=== PATIENT | female | born 1950 | race Hispanic/Latino ===

== ENCOUNTER 2018-03-18 20:11 | Emergency (ER) | payer MEDICARE ==
[2018-03-18] MEDS ORDERED: SUBLIMAZE IM ONE (20:36)
[2018-03-18] MEDS ORDERED: ZOFRAN IM ONE (20:36)
--- NOTE | 2018-03-18 20:41 | Emergency Department Report ---
HPI - General Chief Complaint: Extremity Injury, Upper Time Seen by Provider: 03/18/18 20:28 - HPI HPI: Room 3 The patient is a 67-year-old female presenting with a chief complaint of left shoulder pain and bilateral knee pain after fall. Patient states just prior to arrival she tripped and fell into the door frame striking her left shoulder and bilateral knees. Patient complains of pain in both knees with the right being greater than the left. Patient complains of significant left shoulder pain that worsens with movement. The patient is her pain a score of 10/10 Location: [See above] Duration: [See above] Quality: [See above] Severity: 12/06 Modifying factors: [see above] Context: [see above] Mode of transportation: [not driving] ED Past Medical Hx - Past Medical History Hx Hypertension: Yes Hx Congestive Heart Failure: Yes Hx Diabetes: Yes Hx Deep Vein Thrombosis: Yes (right leg) Hx GERD: Yes Hx Arthritis: Yes Hx Asthma: Yes Additional medical history: high chol, venous insufficiency - Surgical History Hx Appendectomy: Yes Additional Surgical History: Hysterectomy, T&A, Bilat knee surg, finger surg, Basal cell CA removed from neck - Family History Family history: no significant - Social History Smoking Status: Never Smoker Substance Use Type: None - Medications Home Medications: Home Medications Medication Instructions Recorded Confirmed Last Taken Type Clindamycin [Clindamycin CAP] 300 mg PO Q6H #28 capsule 04/04/13 04/12/13 04/12/13 10:30 Rx Liraglutide [Victoza 2-Shiva] 0.6 mg IM BID 04/04/13 04/12/13 04/11/13 22:30 History 0.6 mg/0.1 ml buPROPion [Wellbutrin] 100 mg PO HS 04/04/13 04/12/13 04/12/13 History 100 mg Ipratropium/Albuterol Sulfate 2 inh INHALATION PRN PRN 04/12/13 04/12/13 04/01/13 10:30 History [Combivent Respimat] Loperamide HCl [Loperamide] 2 mg PO PRN PRN 04/12/13 04/12/13 Unknown History Bimatoprost [Lumigan 0.01%] 1 drop OU QDAY #1 drops 04/15/13 Unknown Rx Carvedilol [Coreg] 12.5 mg PO BID #60 tablet 04/15/13 Unknown Rx Ergocalciferol [Vitamin D2] 1.25 mg PO 1XW #7 capsule 04/15/13 Unknown Rx Fenofibrate [Lofibra] 160 mg PO DAILY #30 tablet 04/15/13 Unknown Rx Furosemide [Lasix] 20 mg PO DAILY #30 tablet 04/15/13 Unknown Rx HYDROcodone/APAP 7.5-325 [[place] 1 tab PO Q6HR #60 tablet 04/15/13 Unknown Rx 7.5-325 mg TAB] Montelukast [Singulair] 10 mg PO QPM #30 tablet 04/15/13 Unknown Rx Omeprazole [PriLOSEC] 20 mg PO HS #30 capsule.dr 04/15/13 Unknown Rx Oxybutynin Chloride [Ditropan Xl] 10 mg PO DAILY #30 tab.er.24 04/15/13 Unknown Rx PARoxetine [Paxil] 3 tab PO QDAY #30 tablet 04/15/13 Unknown Rx Pravastatin [Pravachol] 40 mg PO QDAY #30 tablet 04/15/13 Unknown Rx Spironolactone 25 mg PO BID #60 tablet 04/15/13 Unknown Rx Sulfamethoxazole/Trimethoprim 1 each PO BID #14 tablet 04/15/13 Unknown Rx [Bactrim Ds] buPROPion SR [Wellbutrin SR] 150 mg PO QDAY #30 tablet 04/15/13 Unknown Rx glipiZIDE [Glucotrol] 10 mg PO BID #60 tablet 04/15/13 Unknown Rx metFORMIN [Glucophage] 1,000 mg PO QDAY #30 tablet 04/15/13 Unknown Rx traZODone [Desyrel] 150 mg PO HS #30 tablet 04/15/13 Unknown Rx Cyclobenzaprine [Flexeril] 10 mg PO TID PRN #14 tablet 03/18/18 Unknown Rx oxyCODONE /ACETAMINOPHEN [Percocet 1 - 2 tab PO Q6HR PRN #30 tablet 03/18/18 Unknown Rx 5/325] ED Review of Systems ROS: Stated complaint: ARM PAIN Other details as noted in HPI Constitutional: no symptoms reported Eyes: denies: eye pain ENT: denies: throat pain Respiratory: no symptoms reported Cardiovascular: denies: chest pain Endocrine: no symptoms reported Gastrointestinal: denies: abdominal pain Genitourinary: denies: dysuria Musculoskeletal: arthralgia, myalgia Neurological: denies: headache Physical Exam - Physical Exam Vital Signs: Vital Signs 03/18/18 20:13 Temperature 98.7 F Pulse Rate 74 Respiratory 16 Rate Blood Pressure 149/64 [Left] O2 Sat by Pulse 96 Oximetry Physical Exam: GENERAL: The patient is well-developed well-nourished female lying on stretcher. Be in moderate discomfort. [] HEENT: Normocephalic. Atraumatic. Extraocular motions are intact. Patient has moist mucous membranes. NECK: Supple. Trachea midline CHEST/LUNGS: Clear to auscultation. There is no respiratory distress noted. HEART/CARDIOVASCULAR: Regular. There is no tachycardia. There is no gallop rub or murmur. 2+ left radial pulse ABDOMEN: Abdomen is soft, nontender. Patient has normal bowel sounds. There is no abdominal distention. SKIN: There is no rash. There is no edema. There is no diaphoresis. NEURO: The patient is awake, alert, and oriented. The patient is cooperative. The patient has normal speech. Patient able to wiggle fingers of left hand and has sensation to light touch states that her fingers are tingling. MUSCULOSKELETAL: There is tenderness to palpation of the left forearm elbow and left shoulder. There is tenderness to palpation of bilateral knees no deformity seen of the knees. ED Course Vital Signs 03/18/18 20:13 Temperature 98.7 F Pulse Rate 74 Respiratory 16 Rate Blood Pressure 149/64 [Left] O2 Sat by Pulse 96 Oximetry ED Medical Decision Making - Radiology Data Radiology results: image reviewed (left shoulder x-ray, left humerus x-ray, b ilateral knee x-ray, left forearm x-ray) interpreted by me: Left shoulder x-ray-no dislocation. Fracture of the humeral shaft Left humerus [id number] fracture of the humeral shaft Bilateral knee x-ray-no acute fracture seen Left forearm x-ray-no fracture - Differential Diagnosis shoulder dislocation, shoulder fx, Critical care attestation.: If time is entered above; I have spent that time in minutes in the direct care of this critically ill patient, excluding procedure time. ED Disposition Clinical Impression: Fracture of humeral shaft, left, closed, Left arm pain, Contusion of left knee, Contusion of right knee Disposition: - TO HOME OR SELFCARE Is pt being admited?: No Does the pt Need Aspirin: No Condition: Stable Instructions: Arm Fracture in Adults (ED) Additional Instructions: Return to the emergency department immediately should you develop worsening symptoms, fever, inability to tolerate food or liquid or any other concerns. Prescriptions: Cyclobenzaprine [Flexeril] 10 mg PO TID PRN #14 tablet PRN Reason: Muscle Spasm oxyCODONE /ACETAMINOPHEN [Percocet 5/325] 1 - 2 tab PO Q6HR PRN #30 tablet PRN Reason: Pain Referrals: MATTHEW HOLDEN MD [Primary Care Provider] - 3-5 Days LIZA ALEMAN MD [Staff Physician] - 3-5 Days (Dr. Aleman is an orthopedic surgeon. Please follow up with him for further evaluation) Time of Disposition: 22:08
[2018-03-18] MEDS ORDERED: DILAUDID IM ONE (22:04)
--- NOTE | 2018-03-18 22:17 | XRay Report ---
FINAL REPORT PROCEDURE: XR FOREARM 1V LT TECHNIQUE: Left forearm radiographs, single lateral view HISTORY: LT FOREARM PAIN. Injury. COMPARISON: No prior studies are available for comparison. FINDINGS: Fracture (s) and/or Dislocation(s): None . Joint space(s): Normal . Soft tissues: Normal . Bone mineralization: Normal . Foreign bodies: None . IMPRESSION: Normal Examination
--- NOTE | 2018-03-18 22:19 | XRay Report ---
FINAL REPORT PROCEDURE: XR HUMERUS 2+V LT TECHNIQUE: LEFT humerus radiographs, AP and lateral views. HISTORY: pain after fall COMPARISON: No prior studies are available for comparison. FINDINGS: Fracture (s) and/or Dislocation(s): There is oblique fracture of the proximal shaft of the humerus wi th angulation and displacement of less than 1 shaft width. Joint space(s): Normal. Soft tissues: Normal. Bone mineralization: Normal. Foreign bodies: None. IMPRESSION: Humerus shaft fracture.
--- NOTE | 2018-03-18 22:25 | XRay Report ---
FINAL REPORT PROCEDURE: XR SHOULDER 1V LT TECHNIQUE: Left shoulder radiograph, single frontal view. HISTORY: pain after fall COMPARISON: No prior studies are available for comparison. FINDINGS: Fracture(s): Acute oblique fracture of the proximal shaft of the humerus. Healed left rib fracture. Joint space(s): Mild glenohumeral and acromioclavicular degenerative change Soft tissues: Normal. Bone mineralization: Normal. Foreign bodies: None. IMPRESSION: Acute fracture of the proximal shaft of the left humerus.
--- NOTE | 2018-03-18 22:34 | XRay Report ---
FINAL REPORT PROCEDURE: XR KNEE BILAT 3V TECHNIQUE: Bilateral knee radiographs, frontal, lateral, and oblique views. HISTORY: pain after fall - COMPARISON: No prior studies are available for comparison. FINDINGS: Fracture (s) and/or Dislocation(s): None . Joint space(s): Bilateral total knee replacements. Alignment is near anatomic. Soft tissues: Normal. Bone mineralization: Normal. Foreign bodies: None. IMPRESSION: Bilateral knee replacements. No fracture seen.
[2018-03-18 22:54] VITALS: BP 165/57
== END 2018-03-18 22:48 | disposition home or self-care (01) ==
LOC: ED 20:11
DX: S42.302A Unspecified fracture of shaft of humerus, left arm, initial encounter for closed fracture (principal); S80.02XA Contusion of left knee, initial encounter; S80.01XA Contusion of right knee, initial encounter; I11.0 Hypertensive heart disease with heart failure; E11.9 Type 2 diabetes mellitus without complications; Z86.718 Personal history of other venous thrombosis and embolism; K21.9 Gastro-esophageal reflux disease without esophagitis; M19.90 Unspecified osteoarthritis, unspecified site; J45.909 Unspecified asthma, uncomplicated; E78.00 Pure hypercholesterolemia, unspecified; Z90.49 Acquired absence of other specified parts of digestive tract; Z90.710 Acquired absence of both cervix and uterus; W01.198A Fall on same level from slipping, tripping and stumbling with subsequent striking against other object, initial encounter; Y93.89 Activity, other specified; Y92.89 Other specified places as the place of occurrence of the external cause; Y99.8 Other external cause status
CPT/HCPCS: 73020; 73060; 73090; 73562; 96372; 99283; J1170; J2405; J3010

== ENCOUNTER 2018-03-21 15:41 | Inpatient (IN) | payer MEDICARE ==
[~2018-03-21 15:41] MED LIST: ANCEF/STERILE WATER 2 GM/20 ML 2 GM/20 ML SYRINGE IV NR
[2018-03-21 17:22] LABS: Hematocrit 38.4 % (30.3-42.9); Hemoglobin 12.6 gm/dl (10.1-14.3); Mean Corpuscular HGB Conc 33 % (30-34); Mean Corpuscular Volume 94 fl (79-97); Platelet Count 208 K/mm3 (140-440); Red Cell Distribution Width 14.2 % (13.2-15.2)
[2018-03-21 17:50] LABS: BUN/Creatinine Ratio 38; Blood Urea Nitrogen 19 mg/dL (7-17); Calcium 9.3 mg/dL (8.4-10.2); Hemolysis Index 13
--- NOTE | 2018-03-21 17:54 | Anesthesia Consultation ---
Addendum entered and electronically signed by ONELIA ALBERT MD 03/22/18 16:07: Patient seen by cardiology this morning and determined to be stable without cardiac contraindication to surgery. Normal EF, no significant valvular lesions on TTE. Original Note: Anesthesia Consult and Med Hx Date of service: 03/21/18 - Airway Anesthetic Teeth Evaluation: Poor ROM Head & Neck: Adequate Mental/Hyoid Distance: Adequate Mallampati Class: Class II Intubation Access Assessment: Possibly Difficult - Pulmonary Exam CTA: Yes - Cardiac Exam Cardiac Exam: RRR - Pre-Operative Health Status ASA Pre-Surgery Classification: ASA3 Proposed Anesthetic Plan: General - Pulmonary Hx Smoking: No Hx Asthma: Yes (rare inhaler use, presently breathing at her baseline.) SOB: No COPD: Yes Hx Pneumonia: Yes Hx Sleep Apnea: Yes (not on cpap) - Cardiovascular System Hx Hypertension: Yes (H/O CHF) Hx Coronary Artery Disease: No Hx Heart Attack/AMI: No Hx Angina: No Hx Cardia Arrhythmia: No Hx Peripheral Vascular Disease: Yes (veinous insufficiency) - Central Nervous System Hx Seizures: No CVA: Yes (2000) Hx Back Pain: Yes Hx Psychiatric Problems: Yes - Endocrine Hx Renal Disease: Yes Hx End Stage Renal Disease: No - Hematic Hx Anemia: No Hx Sickle Cell Disease: No - Other Systems Hx Alcohol Use: No Hx Substance Use: No Hx Cancer: Yes Hx Obesity: Yes (morbid) - Additional Comments Anesthesia Medical History Comments: Cardiology clearance pending
[2018-03-22] MEDS ORDERED: D50W (25GM) Syringe IV PRN (02:39)
[2018-03-22] MEDS ORDERED: APRESOLINE IV PRN (02:41)
--- NOTE | 2018-03-22 02:51 | Consultation ---
History of Present Illness - Reason for Consult Consult date: 03/22/18 PREOPERATIVE MEDICAL CLEARANCE Requesting physician: LIZA PATTON - History of Present Illness Patient is a 67 year old female who fell down accidentally with pain and difficulty moving her left upper extremity. there is no history of chest pain, shortness of breath ,fever or chills. patient also has no history of nausea and vomiting. Past History Past Medical History: diabetes, hypertension, other (1. Asthma 2. Glaucoma 3. Venous Insufficiency) Social history: denies: smoking, alcohol abuse Family history: no significant family history Medications and Allergies Allergies Allergy/AdvReac Type Severity Reaction Status Date / Time meperidine HCl [From Demerol] Allergy Rash Verified 04/04/13 16:22 NSAIDS (Non-Steroidal Allergy Rash Verified 04/04/13 16:22 Anti-Inflamma Penicillins Allergy Rash Verified 04/04/13 16:22 Home Medications Medication Instructions Recorded Confirmed Last Taken Type Liraglutide [Victoza 2-Shiva] 1.8 mg IM QHS 04/04/13 03/22/18 03/20/18 History buPROPion [Wellbutrin] 100 mg PO HS 04/04/13 03/22/18 03/21/18 History Ipratropium/Albuterol Sulfate 2 inh INHALATION PRN PRN 04/12/13 03/22/18 03/07/18 History [Combivent Respimat] Carvedilol [Coreg] 12.5 mg PO BID #60 tablet 04/15/13 03/22/18 03/21/18 Rx Fenofibrate [Lofibra] 160 mg PO DAILY #30 tablet 04/15/13 03/22/18 03/21/18 Rx Furosemide [Lasix] 20 mg PO DAILY #30 tablet 04/15/13 03/22/18 03/19/18 Rx Montelukast [Singulair] 10 mg PO QPM #30 tablet 04/15/13 03/22/18 03/21/18 Rx PARoxetine [Paxil] 3 tab PO QDAY #30 tablet 04/15/13 03/22/18 03/21/18 Rx Pravastatin [Pravachol] 40 mg PO QDAY #30 tablet 04/15/13 03/22/18 03/21/18 Rx Spironolactone 25 mg PO BID #60 tablet 04/15/13 03/22/18 03/21/18 Rx buPROPion SR [Wellbutrin SR] 150 mg PO QDAY #30 tablet 04/15/13 03/22/18 9 Rx glipiZIDE [Glucotrol] 10 mg PO BID #60 tablet 04/15/13 03/22/18 03/21/18 Rx Cyclobenzaprine [Flexeril] 10 mg PO TID PRN #14 tablet 03/18/18 03/22/18 03/21/18 Rx oxyCODONE /ACETAMINOPHEN [Percocet 1 - 2 tab PO Q6HR PRN #30 tablet 03/18/18 03/22/18 03/21/18 Rx 5/325] 20 mg Bimatoprost [Lumigan 0.01%] 1 drop OU QHS 03/22/18 03/22/18 03/21/18 History HYDROcodone/ACETAMINOPHEN 1 each PO Q8H PRN 03/22/18 03/22/18 03/18/18 History [Hydrocodone-Acetamin 10-325 mg] Omeprazole [PriLOSEC] 40 mg PO HS 03/22/18 03/22/18 03/21/18 History Oxybutynin Chloride [Ditropan Xl] 10 mg PO QHS 03/22/18 03/22/18 03/21/18 History Tramadol HCl [Ultram] 75 mg PO PRN 03/22/18 12/28/17 History metFORMIN [Glucophage] 500 mg PO BID 03/22/18 03/22/18 03/21/18 History traZODone [Desyrel] 75 mg PO HS 03/22/18 03/22/18 03/19/18 History Active Meds: Active Medications Dextrose (D50w (25gm) Syringe) 50 ml IV PRN PRN PRN Reason: Hypoglycemia Hydralazine HCl (Apresoline) 10 mg IV Q4H PRN PRN Reason: Blood Pressure Insulin Human Regular (Humulin R) 0 units SUB-Q Q4H APARNA; Protocol Review of Systems Constitutional: no weight loss, no fever, no chills, no sweats, no anorexia, no fatigue, no weakness, no malaise, no lethargy, no poor appetite, no chronic pain Eyes: bilateral: other (No Bilateral visual Impairment) Ears, nose, mouth and throat: no ear pain, no ear discharge, no decreased hearing, no nasal congestion, no nasal discharge, no mouth pain, no dysphagia, no hoarseness, no sore throat, no post-nasal drip, no headache, no vertigo Breasts: deferred Cardiovascular: no chest pain, no orthopnea, no palpitations, no rapid/irregular heart beat, no syncope, no lightheadedness, no shortness of breath, no dyspnea on exertion, no paroxysmal nocturnal dyspnea, no claudication, no phlebitis, no high blood pressure Respiratory: no cough, no hemoptysis, no shortness of breath, no dyspnea on exertion, no congestion, no wheezing, no pleurisy, no pain on inspiration, no respiratory infections Gastrointestinal: no abdominal pain, no nausea, no vomiting, no diarrhea, no constipation, no hematemesis, no melena, no hematochezia, no loss of appetite, no early satiety, no heartburn, no indigestion, no excessive gas, no jaundice, no dyspepsia/bloating, no early satiety, no lactose intolerance Genitourinary Female: stress incontinence, no urinary frequency, no urgency, no hematuria, no Menstruation: postmenopausal Rectal: no pain, no itching, no flatulence Musculoskeletal: no neck stiffness, no neck pain, no shooting arm pain, no morning stiffness, no muscle weakness, no muscle cramps, no myalgias, no atrophy, no limitation of motion, no loss of height, no prior amputations Integumentary: no rash, no pruritis, no redness, no jaundice, no bullae, no lesions, no darkening of skin, no depigmentation Neurological: no weakness, no numbness, no seizures, no syncope, no ataxia, no headaches, no migraines, no convulsions, no aphasia, no change in speech, no change in mentation, no confusion, no memory loss, no double vision, no loss of vision, no hearing difficulties Psychiatric: no anxiety, no insomnia, no suicidal ideation, no depression, no confusion Endocrine: no cold intolerance, no heat intolerance, no excessive thirst, no polydipsia, no polyuria, no nocturia, no excessive sweating, no palpatations, no low blood sugars Allergic/Immunologic: no urticaria, no wheezing, no anaphylaxis, no angioedema, no seasonal allergies Exam - Constitutional Vitals: Temp Pulse Resp BP Pulse Ox 98.0 F 80 20 138/70 92 03/21/18 23:35 03/21/18 23:35 03/21/18 23:35 03/21/18 23:35 03/21/18 23:35 General appearance: Present: no acute distress - EENT Eyes: Present: PERRL, EOM intact. Absent: scleral icterus - Neck Neck: Present: supple. Absent: carotid bruits - Respiratory Respiratory effort: normal - Cardiovascular Rhythm: regular Heart Sounds: Absent: gallop, systolic murmur, diastolic murmur, rub, click - Extremities Extremities: pulses intact Peripheral Pulses: within normal limits - Abdominal General gastrointestinal: Present: soft, non-tender, non-distended. Absent: tender, distended, rigid, hepatomegaly, splenomegaly, mass Female genitourinary: Present: deferred - Rectal Rectal Exam: deferred - Integumentary Integumentary: Present: clear. Absent: jaundice, clammy - Musculoskeletal Musculoskeletal: strength equal bilaterally - Psychiatric Psychiatric: appropriate mood/affect - Neurologic Neurologic: no focal deficits, moves all extremities Results - Labs CBC & Chem 7: 03/21/18 16:57 03/21/18 16:57 Labs: Abnormal lab results 03/21/18 Range/Units 16:57 BUN 19 H (7-17) mg/dL Creatinine 0.5 L (0.7-1.2) mg/dL Glucose 225 H (65-100) mg/dL Assessment and Plan - Patient Problems (1) Fracture of humeral shaft, left, closed Current Visit: No Status: Acute Plan to address problem: 1. Patient will have CBC, CMP and 1 set of cardiac enzymes checked this morning. 2. Patient will have accu checks [id number] with moderate dose Regular Insulin coverage subcutaneously. 3. patient will be on I.V hydralazine 10mg Q4h for blood pressure of 160/90 or more. 4. Tylenol 650mg MT Q4h PRN fever or headache. 5. I.V Zofrav 4mg Q6h PRN nausea and vomitng 6. Pain control and definitive fracture managment per orthopedic surgeon.
[2018-03-22] MEDS: HumuLIN R SUB-Q SCH ×5 (03:00→19:20)
[2018-03-22] MEDS ORDERED: MORPHINE IV PRN (06:04)
--- NOTE | 2018-03-22 09:14 | XRay Report ---
AP CHEST: HISTORY: Preoperative evaluation Borderline to mild cardiomegaly is suspected. Borderline central venous congestion. The lungs are clear. No evidence for pneumonia, large pleural effusion or pneumothorax. IMPRESSION: Borderline heart size and pulmonary vessels. No acute cardiopulmonary process identified.
[2018-03-22] MEDS: MORPHINE IV PRN (11:15)
--- NOTE | 2018-03-22 12:53 | Event Note ---
Date: 03/22/18 Detailed cardiology consultation dictated. Echo reviewed - normal LVEF, no significant abnormalities. Currently stable cardiac status. No cardiac c ontraindications to proceeding with contemplated orthopedic surgery at this time. Saeid MAST NP / DR. Juany BONE
--- NOTE | 2018-03-22 13:05 | Consultation ---
REFERRING PHYSICIAN: Dr. Aleman. PRIMARY CERTIFIED SUBSTANCE ABUSE COUNSELOR: Dr. Saeid Castillo. REASON FOR CONSULTATION: Advice and opinion regarding perioperative cardiac risk. HISTORY OF PRESENT ILLNESS: The patient is a pleasant 67-year-old female with a history of hypertension, diabetes, diastolic heart failure, who presents to the hospital after a nonsyncopal fall. She was found to have a left humeral fracture and scheduled to undergo surgery. She denies any chest pain or shortness of breath. Prior to this, she states the fall was a slip and a nonsyncopal episode. No palpitations, shortness of breath or chest pain ____. No fevers, chills, nausea or vomiting. No similar falls. Diabetes has been under decent control. No hematochezia, melena, hemoptysis or hematemesis. Today, she is seen on telemetry, feeling fine rate, undergo surgery. PAST MEDICAL HISTORY: As aforementioned. REVIEW OF SYSTEMS: As aforementioned. MEDICATIONS: Inpatient and outpatient medications reviewed. ALLERGIES: MEPERIDINE, NSAIDS, AND PENICILLIN. SOCIAL HISTORY: Nonsmoker, nondrinker. FAMILY HISTORY: No significant family history of premature heart disease. OTHER MEDICAL HISTORY: Includes venous insufficiency, glaucoma and asthma. PHYSICAL EXAMINATION: VITAL SIGNS: Blood pressure is 130/70. She is afebrile. Tele reveals sinus rhythm. Her EKG is unremarkable, normal sinus rhythm, normal axis. O2 sat is 96% on room air. HEENT: Sclerae icteric. PERRLA. NECK: Supple, no masses, no JVD. CHEST: Clear to auscultation bilaterally. Good air movement. CARDIOVASCULAR: Regular rhythm, S1, S2. ABDOMEN: Soft, nontender, and nondistended. Normoactive bowel sounds in all 4 quadrants. No masses or bruits. EXTREMITIES: No cyanosis, clubbing, or edema. Good peripheral pulses. SKIN: Warm, dry, intact. No rashes. DATA: EKG is aforementioned. CBC is normal. BMP is unremarkable aside from a glucose of 225. I reviewed her office records, no recent cardiac workup since 2014, saw Dr. aCstillo in September. Given that her EKG is unremarkable, she is asymptomatic. We will check an echocardiogram. If this is unremarkable, I believe she is low risk from a cardiac standpoint for contemplated procedure. Thank you for this consultation. We will follow along with you. JOB# [id number] SBM/NTS
[2018-03-22] MEDS ORDERED: DILAUDID ONE ×2 (15:42→19:04)
[2018-03-22] MEDS ORDERED: DIPRIVAN 10 MG/ML IV ONE ×2 (15:42→15:50)
[2018-03-22] MEDS ORDERED: XYLOCAINE MPF 2% ONE (15:42)
[2018-03-22] MEDS: NACL 0.9% 1000 ML 1,000 ML IV SCH (15:44)
[2018-03-22] MEDS ORDERED: ZEMURON IV ONE (15:48)
[2018-03-22] MEDS ORDERED: QUELICIN ONE (15:48)
[2018-03-22] MEDS ORDERED: VANCOMYCIN/NS 1 GM/250 ML 1 GM/250 ML BAG IV NR (16:03)
--- NOTE | 2018-03-22 16:08 | Anesthesia Day of Surgery ---
Anesthesia Day of Surgery - Day of Surgery Patient Examined: Yes Patient H&P Reviewed: Yes Patient is NPO: Yes Cardiac Clearance: Yes
--- NOTE | 2018-03-22 16:20 | Event Note ---
Date: 03/22/18 Patient seen and examined, Clinically stable, awaiting surgical intervention. Continue supportive care and pain control
[2018-03-22] MEDS ORDERED: VANCOMYCIN 1,750 MG in NACL 0.9% 500 ML 500 ML IV SCH (17:15)
[2018-03-22] MEDS ORDERED: NACL 0.9% IR ONE (17:16)
[2018-03-22] MEDS ORDERED: HYDROGEN PEROXIDE ONE (18:00)
[2018-03-22] MEDS ORDERED: SUBLIMAZE ONE (18:01)
[2018-03-22] MEDS ORDERED: ROBINUL ONE (18:37)
[2018-03-22] MEDS ORDERED: BLOXIVERZ ONE (18:37)
[2018-03-22] MEDS ORDERED: ZOFRAN ONE (18:37)
--- NOTE | 2018-03-22 18:37 | Procedure Note ---
Date of procedure: 03/22/18 Pre-op diagnosis: displaced left proximal third humerus fracture Post-op diagnosis: same Procedure: Closed reduction and insertion of intramedullary nail left humerus Procedure The patient was brought to the OR after being given a scalene nerve block for p ostop pain management she was placed on the OR table in the supine position following induction and intubation the patient's was placed in a beachchair position. The left upper extremity was then prepped and draped in the usual sterile manner. A timeout procedure was done to identify the patient and the correct operative site. An incision was made over the distal acromion this was carried down to skin and subcutaneous the deltoid muscle and fascia was incised as well as the rotator cuff tendon next C-arm was brought in the location of our entry portal was ascertained next a awl was used to enter the proximal medullary canal. A ball-tipped guidewire was then inserted antegrade down the proximal humerus to the fracture site using gentle manipulation and traction the distal medullary canal was entered next the of the IM conchita was chosen she was reamed to a 10 mm diameter followed by insertion of the 9 x 210 IM nail. 2 proximal locking screws were placed into the humeral head and neck area this was followed by placement of the distal locking screw again under C-arm visualization AP and lateral views were obtained showing good reduction of the fracture and placement of our hardware next the wound was copiously irrigated and was closed in a standard routine fashion. Dressings were applied the patient tolerated procedure there were no complications Anesthesia: MAC Surgeon: LIZA PATTON Classics Professor: ALBER ARRINGTON Estimated blood loss: 50-100ml Pathology: none Condition: stable Disposition: PACU
[2018-03-22] MEDS ORDERED: SODIUM CHLORIDE FLUSH SYRINGE 10 ML IV SCH (19:00)
[2018-03-22] MEDS: DILAUDID IV PRN ×2 (19:25→19:40)
--- NOTE | 2018-03-22 19:32 | Post Anesthesia Evaluation ---
- Post Anesthesia Evaluation Patient Participated: Yes Airway Patent: Yes Stable Respiratory Function: Yes Temp > 96.8F: Yes Pain Manageable: Yes Adequeate Hydration: Yes Anesthesia Complications: No
[2018-03-22 22:07] LABS: Bacteria,Urine 2+ /HPF (Negative); Bilirubin,Urine NEG (Negative); Blood,Urine MOD (Negative); Color,Urine Amber (Yellow); Mucus,Urine 1+ /HPF
[2018-03-22 22:12] LABS: WBC,Urine > 182.0 /HPF (0.0-6.0)
[2018-03-23] MEDS: NACL 0.9% 1000 ML 1,000 ML IV SCH
[2018-03-23] MEDS: HumuLIN R SUB-Q SCH ×9 (00:37→23:12)
[2018-03-23] MEDS: MORPHINE IV PRN ×2 (04:09→10:56)
--- NOTE | 2018-03-23 07:32 | XRay Report ---
LEFT SHOULDER, 2 VIEWS LEFT HUMERUS, 2 VIEWS HISTORY: Pain, left humerus fracture, scalp and intraoperative films. FINDINGS: Fluoroscopy was provided by radiology during internal fixation of a mildly displaced and angulated fracture in the proximal left humeral shaft. Post operative images demonstrate anatomic alignment after placement of an intramedullary conchita. Mild arthritic changes are noted at the left shoulder. IMPRESSION: Internal fixation of a left humeral fracture. Please correlate with the procedural report as needed.
[2018-03-23] MEDS ORDERED: ZOFRAN ODT PO PRN (09:00)
[2018-03-23] MEDS: NORCO 5/325 PO PRN (10:20)
[2018-03-23] MEDS: LOVENOX SUB-Q SCH (10:20)
--- NOTE | 2018-03-23 11:00 | Progress Note ---
Assessment and Plan S/p closed reduction and insertion of nail of left humerus yesterday. Currently stable cardiac status. Cont home cardiac regimen. Nothing further to add from cardiac perspective. Will sign off. Recommend pt follow up in our office with Dr. Castillo within 1-2 weeks of hospital discharge ([phone]). The patient has been seen in conjunction with Dr. Juany Garrido who agrees with the assessment and plan of care. - Patient Problems (1) Left humeral fracture Current Visit: Yes Status: Acute (2) HTN (hypertension) Current Visit: Yes Status: Chronic (3) Diabetes Current Visit: Yes Status: Chronic (4) Dyslipidemia Current Visit: Yes Status: Chronic (5) Morbid obesity Current Visit: Yes Status: Chronic (6) Sleep apnea Current Visit: Yes Status: Chronic Subjective Date of service: 03/23/18 Principal diagnosis: humerus fracture Interval history: pt resting in bed, s/p closed reduction and insertion of nail of left humerus yesterday, c/o significant pain in left arm, requesting more adequate pain control. no current cardiac complaints. Objective Last Vital Signs Temp 98.8 F 03/23/18 08:41 Pulse 92 H 03/23/18 08:41 Resp 18 03/23/18 08:41 BP 134/54 03/23/18 08:41 Pulse Ox 95 03/23/18 08:41 - Physical Examination General: No Apparent Distress, Other (c/o left arm pain) HEENT: Positive: PERRL, Normocephaly, Mucus Membranes Moist Neck: Positive: neck supple, trachea midline Cardiac: Positive: Reg Rate and Rhythm, S1/S2 Lungs: Positive: clear to auscultation Neuro: Positive: Grossly Intact Abdomen: Positive: Soft. Negative: Tender Skin: Negative: Rash Extremities: Absent: edema - Imaging and Cardiology EKG: report reviewed, image reviewed Echo: report reviewed (03/22/2018: EF 50-55%, abnormal diastolic function. )
[2018-03-23] MEDS ORDERED: IPRATROPIUM INHALATION PRN (11:59)
[2018-03-23] MEDS ORDERED: ALBUTEROL SULFATE INHALATION PRN (11:59)
[2018-03-23] MEDS ORDERED: PROVENTIL IH PRN (12:59)
--- NOTE | 2018-03-23 14:14 | Progress Note ---
Assessment and Plan Assessment and plan: Patient is a 67 year old female who fell down accidentally with pain and difficulty moving her left upper extremity. there is no history of chest pain, shortness of breath ,fever or chills. patient also has no history of nausea and vomiting. (1) Left humeral fracture Current Visit: Yes Status: Acute S/p closed reduction and insertion of nail of left humerus yesterday. Pain management Evaluate for Rehab vs SNF Anticipate discharge in AM (2) HTN (hypertension) Current Visit: Yes Status: Chronic (3) Diabetes Current Visit: Yes Status: Chronic (4) Dyslipidemia Current Visit: Yes Status: Chronic (5) Morbid obesity Current Visit: Yes Status: Chronic Weight loss counselling provided (6) Sleep apnea Current Visit: Yes Status: Chronic DVT/GI prophy History Interval history: Patient is seen today for: S/p closed reduction and insertion of nail of left humerus yesterday. Seen and examined at bedside; 24hour events reviewed; nursing staff ; no adverse overnight events reported to me; Denies any chest pain, nausea, vomiting, diarrhea . patient complains of pain at surgical site. 10/10 in intensity and not willing to move the hand. No fever noted blood pressure controlled Hospitalist Physical - Physical exam Narrative exam: VITAL SIGNS: Reviewed. GENERAL: The patient appeared well nourished and normally developed. morbidly obese Vital signs as documented. HEAD: No signs of head trauma. EYES: Pupils are equal. Extraocular motions intact. EARS: Hearing grossly intact. MOUTH: Oropharynx is normal. NECK: No adenopathy, no JVD. CHEST: Chest with clear breath sounds bilaterally. No wheezes, rales, or rhonchi. CARDIAC: Regular rate and rhythm. S1 and S2, without murmurs, gallops, or rubs. VASCULAR: No Edema. Peripheral pulses normal and equal in all extremities. ABDOMEN: Soft, without detectable tenderness. No sign of distention. No rebound or guarding, and no masses palpated. Bowel Sounds normal. MUSCULOSKELETAL: Left upper extremity in a sling would dress and tender to touch patient resistant to movement. Good range of motion of all other major joints. Extremities without clubbing, cyanosis or edema. NEUROLOGIC EXAM: Alert and oriented x 3. No focal sensory or strength deficits. Speech normal. Follows commands. PSYCHIATRIC: Mood normal. SKIN: No rash or lesions. - Constitutional Vitals: Temp Pulse Resp BP Pulse Ox 98.3 F 88 18 152/52 95 03/23/18 11:37 03/23/18 11:37 03/23/18 11:37 03/23/18 11:37 03/23/18 11:37 General appearance: Present: no acute distress Results - Labs CBC & Chem 7: 03/21/18 16:57 03/21/18 16:57 Labs: Laboratory Last Values WBC 8.8 K/mm3 (4.5-11.0) 03/21/18 16:57 RBC 4.10 M/mm3 (3.65-5.03) 03/21/18 16:57 Hgb 12.6 gm/dl (10.1-14.3) 03/21/18 16:57 Hct 38.4 % (30.3-42.9) 03/21/18 16:57 MCV 94 fl (79-97) 03/21/18 16:57 MCH 31 pg (28-32) 03/21/18 16:57 MCHC 33 % (30-34) 03/21/18 16:57 RDW 14.2 % (13.2-15.2) 03/21/18 16:57 Plt Count 208 K/mm3 (140-440) 03/21/18 16:57 Sodium 139 mmol/L (137-145) 03/21/18 16:57 Potassium 4.4 mmol/L (3.6-5.0) 03/21/18 16:57 Chloride 98.3 mmol/L (98-107) 03/21/18 16:57 Carbon Dioxide 30 mmol/L (22-30) 03/21/18 16:57 Anion Gap 15 mmol/L 03/21/18 16:57 BUN 19 mg/dL (7-17) H 03/21/18 16:57 Creatinine 0.5 mg/dL (0.7-1.2) L 03/21/18 16:57 Estimated GFR > 60 ml/min 03/21/18 16:57 BUN/Creatinine Ratio 38 % 03/21/18 16:57 Glucose 225 mg/dL (65-100) H 03/21/18 16:57 POC Glucose 232 (70-105) H 03/23/18 11:40 Calcium 9.3 mg/dL (8.4-10.2) 03/21/18 16:57 Urine Color Claudette (Yellow) 03/22/18 21:41 Urine Turbidity Cloudy (Clear) 03/22/18 21:41 Urine pH 5.0 (5.0-7.0) 03/22/18 21:41 Ur Specific [place] 1.028 (1.003-1.030) 03/22/18 21:41 Urine Protein 30 mg/dl mg/dL (Negative) 03/22/18 21:41 Urine Glucose (UA) Neg mg/dL (Negative) 03/22/18 21:41 Urine Ketones Tr mg/dL (Negative) 03/22/18 21:41 Urine Blood Mod (Negative) 03/22/18 21:41 Urine Nitrite Neg (Negative) 03/22/18 21:41 Urine Bilirubin Neg (Negative) 03/22/18 21:41 Urine Urobilinogen 2.0 mg/dL (<2.0) 03/22/18 21:41 Ur Leukocyte Esterase Lg (Negative) 03/22/18 21:41 Urine WBC (Auto) > 182.0 /HPF (0.0-6.0) H 03/22/18 21:41 Urine RBC (Auto) 73.0 /HPF (0.0-6.0) 03/22/18 21:41 U Epithel Cells (Auto) 5.0 /HPF (0-13.0) 03/22/18 21:41 Urine Bacteria (Auto) 2+ /HPF (Negative) 03/22/18 21:41 Urine WBC Clumps 3+ /HPF 03/22/18 21:41 Urine Mucus 1+ /HPF 03/22/18 21:41
--- NOTE | 2018-03-23 15:48 | Progress Note ---
Assessment and Plan Status post closed reduction and insertion of intramedullary nail left humerus Postoperative day 1 Continued observation begin physical therapy hopefully discharged home soon Subjective Date of service: 03/23/18 Principal diagnosis: humerus fracture Interval history: Still complaining of left shoulder and arm pain Objective Vital signs: Vital Signs - 12hr 03/23/18 03/23/18 03/23/18 04:00 07:36 08:41 Temperature 99.4 F 98.8 F Pulse Rate 90 92 H Respiratory 20 18 Rate Blood Pressure 138/57 Blood Pressure 134/54 [Right] O2 Sat by Pulse 94 93 95 Oximetry 03/23/18 11:37 Temperature 98.3 F Pulse Rate 88 Respiratory 18 Rate Blood Pressure 152/52 Blood Pressure [Right] O2 Sat by Pulse 95 Oximetry Narrative Exam: Left arm - postoperative dressings intact no bloody drainage noted patient is lying in bed encouraged to get up or sit up in chair and to cooperate with physical therapy - Labs CBC & BMP: 03/21/18 16:57 03/21/18 16:57 Labs: Abnormal lab results 03/22/18 03/22/18 03/22/18 Range/Units 19:17 21:41 22:26 POC Glucose 132 H 150 H (70-105) Urine WBC (Auto) > 182.0 H (0.0-6.0) /HPF 03/23/18 03/23/18 03/23/18 Range/Units 04:17 06:11 11:40 POC Glucose 203 H 183 H 232 H (70-105) Urine WBC (Auto) (0.0-6.0) /HPF
[2018-03-23] MEDS: LEVAQUIN PO SCH (17:02)
[2018-03-23] MEDS: GLUCOPHAGE PO SCH (17:51)
[2018-03-23] MEDS: GLUCOTROL PO SCH (17:51)
[2018-03-23] MEDS: SINGULAIR PO SCH (18:16)
[2018-03-23] MEDS: LATANOPROST 0.005% OU SCH (18:16)
[2018-03-23] MEDS ORDERED: NON-FORMULARY (Oxybutynin Chloride [Ditropan Xl] 10 MG) PO SCH (22:00)
[2018-03-23] MEDS ORDERED: NON-FORMULARY (Bimatoprost [Lumigan 0.01%] 1 DROP) OU SCH (22:00)
[2018-03-23] MEDS ORDERED: NON-FORMULARY (Liraglutide [Victoza 2-Pak] 1.8 MG) IM SCH (22:00)
[2018-03-23] MEDS: COREG PO SCH (23:13)
[2018-03-23] MEDS: WELLBUTRIN PO SCH (23:21)
[2018-03-23] MEDS: DITROPAN XL PO SCH (23:21)
[2018-03-23] MEDS: DESYREL PO SCH (23:22)
[2018-03-23] MEDS: ALDACTONE PO SCH (23:22)
[2018-03-24] MEDS: HumuLIN R SUB-Q SCH ×4 (04:40→23:00)
[2018-03-24] MEDS: ULTRAM PO PRN ×3 (05:40→21:25)
[2018-03-24] MEDS: NORCO 10/325 PO PRN ×2 (05:41→15:18)
[2018-03-24] MEDS: LASIX PO SCH (05:42)
[2018-03-24] MEDS: GLUCOPHAGE PO SCH ×2 (09:16→17:37)
[2018-03-24] MEDS: GLUCOTROL PO SCH ×2 (09:16→17:37)
[2018-03-24] MEDS ORDERED: PAXIL PO SCH (10:00)
[2018-03-24] MEDS ORDERED: NON-FORMULARY (Fenofibrate [Lofibra] 160 MG) PO SCH (10:00)
[2018-03-24] MEDS: LEVAQUIN PO SCH (11:04)
[2018-03-24] MEDS: TRICOR PO SCH (11:04)
[2018-03-24] MEDS: COREG PO SCH ×2 (11:04→21:26)
[2018-03-24] MEDS: PRAVACHOL PO SCH (11:05)
[2018-03-24] MEDS: WELLBUTRIN SR PO SCH (11:05)
[2018-03-24] MEDS: ALDACTONE PO SCH ×2 (11:05→21:30)
[2018-03-24] MEDS: LOVENOX SUB-Q SCH (11:06)
[2018-03-24] MEDS: PAXIL PO SCH (11:16)
--- NOTE | 2018-03-24 12:10 | Progress Note ---
Assessment and Plan Assessment and plan: Patient is a 67 year old female who fell down accidentally with pain and difficulty moving her left upper extremity. there is no history of chest pain, shortness of breath ,fever or chills. patient also has no history of nausea and vomiting. (1) Left humeral fracture Current Visit: Yes Status: Acute S/p closed reduction and insertion of nail of left humerus yesterday. Pain management Evaluate for Rehab vs SNF Anticipate discharge in AM Patient does not feel safe with a plan of going home. will keep till case manage ment able to arrange alternative discharge plan (2) HTN (hypertension) Current Visit: Yes Status: Chronic (3) Diabetes Current Visit: Yes Status: Chronic (4) Dyslipidemia Current Visit: Yes Status: Chronic (5) Morbid obesity Current Visit: Yes Status: Chronic Weight loss counselling provided (6) Sleep apnea Current Visit: Yes Status: Chronic DVT/GI prophy History Interval history: Patient is seen today for: S/p closed reduction and insertion of nail of left humerus yesterday. Seen and examined at bedside; 24hour events reviewed; nursing staff ; no adverse overnight events reported to me; Denies any chest pain, nausea, vomiting, diarrhea . patient complains of pain at surgical site. improving and states she does not feel safe going home No fever noted blood pressure controlled Hospitalist Physical - Physical exam Narrative exam: VITAL SIGNS: Reviewed. GENERAL: The patient appeared well nourished and normally developed. morbidly obese Vital signs as documented. HEAD: No signs of head trauma. EYES: Pupils are equal. Extraocular motions intact. EARS: Hearing grossly intact. MOUTH: Oropharynx is normal. NECK: No adenopathy, no JVD. CHEST: Chest with clear breath sounds bilaterally. No wheezes, rales, or rhonchi. CARDIAC: Regular rate and rhythm. S1 and S2, without murmurs, gallops, or rubs. VASCULAR: No Edema. Peripheral pulses normal and equal in all extremities. ABDOMEN: Soft, without detectable tenderness. No sign of distention. No rebound or guarding, and no masses palpated. Bowel Sounds normal. MUSCULOSKELETAL: Left upper extremity in a sling would dress and tender to touch patient resistant to movement. Good range of motion of all other major joints. Extremities without clubbing, cyanosis or edema. NEUROLOGIC EXAM: Alert and oriented x 3. No focal sensory or strength deficits. Speech normal. Follows commands. PSYCHIATRIC: Mood normal. SKIN: No rash or lesions. - Constitutional Vitals: Temp Pulse Resp BP Pulse Ox 98.3 F 72 20 155/38 97 03/24/18 07:20 03/24/18 07:20 03/24/18 07:20 03/24/18 07:20 03/24/18 07:20 General appearance: Present: no acute distress Results - Labs CBC & Chem 7: 03/21/18 16:57 03/21/18 16:57 Labs: Laboratory Last Values WBC 8.8 K/mm3 (4.5-11.0) 03/21/18 16:57 RBC 4.10 M/mm3 (3.65-5.03) 03/21/18 16:57 Hgb 12.6 gm/dl (10.1-14.3) 03/21/18 16:57 Hct 38.4 % (30.3-42.9) 03/21/18 16:57 MCV 94 fl (79-97) 03/21/18 16:57 MCH 31 pg (28-32) 03/21/18 16:57 MCHC 33 % (30-34) 03/21/18 16:57 RDW 14.2 % (13.2-15.2) 03/21/18 16:57 Plt Count 208 K/mm3 (140-440) 03/21/18 16:57 Sodium 139 mmol/L (137-145) 03/21/18 16:57 Potassium 4.4 mmol/L (3.6-5.0) 03/21/18 16:57 Chloride 98.3 mmol/L (98-107) 03/21/18 16:57 Carbon Dioxide 30 mmol/L (22-30) 03/21/18 16:57 Anion Gap 15 mmol/L 03/21/18 16:57 BUN 19 mg/dL (7-17) H 03/21/18 16:57 Creatinine 0.5 mg/dL (0.7-1.2) L 03/21/18 16:57 Estimated GFR > 60 ml/min 03/21/18 16:57 BUN/Creatinine Ratio 38 % 03/21/18 16:57 Glucose 225 mg/dL (65-100) H 03/21/18 16:57 POC Glucose 149 (70-105) H 03/24/18 08:37 Calcium 9.3 mg/dL (8.4-10.2) 03/21/18 16:57 Urine Color Claudette (Yellow) 03/22/18 21:41 Urine Turbidity Cloudy (Clear) 03/22/18 21:41 Urine pH 5.0 (5.0-7.0) 03/22/18 21:41 Ur Specific [place] 1.028 (1.003-1.030) 03/22/18 21:41 Urine Protein 30 mg/dl mg/dL (Negative) 03/22/18 21:41 Urine Glucose (UA) Neg mg/dL (Negative) 03/22/18 21:41 Urine Ketones Tr mg/dL (Negative) 03/22/18 21:41 Urine Blood Mod (Negative) 03/22/18 21:41 Urine Nitrite Neg (Negative) 03/22/18 21:41 Urine Bilirubin Neg (Negative) 03/22/18 21:41 Urine Urobilinogen 2.0 mg/dL (<2.0) 03/22/18 21:41 Ur Leukocyte Esterase Lg (Negative) 03/22/18 21:41 Urine WBC (Auto) > 182.0 /HPF (0.0-6.0) H 03/22/18 21:41 Urine RBC (Auto) 73.0 /HPF (0.0-6.0) 03/22/18 21:41 U Epithel Cells (Auto) 5.0 /HPF (0-13.0) 03/22/18 21:41 Urine Bacteria (Auto) 2+ /HPF (Negative) 03/22/18 21:41 Urine WBC Clumps 3+ /HPF 03/22/18 21:41 Urine Mucus 1+ /HPF 03/22/18 21:41
[2018-03-24] MEDS: MORPHINE IV PRN (13:48)
[2018-03-24] MEDS: FLEXERIL PO PRN (15:19)
[2018-03-24] MEDS: ZOFRAN IV PRN (17:34)
[2018-03-24] MEDS: SINGULAIR PO SCH (17:37)
[2018-03-24] MEDS: LATANOPROST 0.005% OU SCH (17:39)
[2018-03-24] MEDS: WELLBUTRIN PO SCH (21:21)
[2018-03-24] MEDS: DITROPAN XL PO SCH (21:21)
[2018-03-24] MEDS: DESYREL PO SCH (21:24)
[2018-03-24] MEDS: NORCO 5/325 PO PRN (21:24)
[2018-03-25] MEDS: HumuLIN R SUB-Q SCH ×4 (03:00→19:57)
[2018-03-25] MEDS: NORCO 10/325 PO PRN ×2 (05:12→16:51)
[2018-03-25] MEDS: LASIX PO SCH (05:13)
[2018-03-25] MEDS: ZOFRAN IV PRN (09:04)
[2018-03-25] MEDS: MORPHINE IV PRN ×2 (09:13→21:51)
--- NOTE | 2018-03-25 12:49 | Progress Note ---
Assessment and Plan Assessment and plan: Patient is a 67 year old female who fell down accidentally with pain and difficulty moving her left upper extremity. there is no history of chest pain, shortness of breath ,fever or chills. patient also has no history of nausea and vomiting. (1) Left humeral fracture Current Visit: Yes Status: Acute S/p closed reduction and insertion of nail of left humerus yesterday. Pain management Evaluate for Rehab vs SNF Anticipate discharge in AM Patient does not feel safe with a plan of going home. will keep till case manage ment able to arrange alternative discharge plan Monitor the nausea and vomiting. May trail reglan. (2) HTN (hypertension) Current Visit: Yes Status: Chronic (3) Diabetes Current Visit: Yes Status: Chronic (4) Dyslipidemia Current Visit: Yes Status: Chronic (5) Morbid obesity Current Visit: Yes Status: Chronic Weight loss counselling provided (6) Sleep apnea Current Visit: Yes Status: Chronic DVT/GI prophy History Interval history: Patient is seen today for: S/p closed reduction and insertion of nail of left humerus yesterday. Seen and examined at bedside; 24hour events reviewed; nursing staff ; nausea with some light vomiting. still with pain at surgical site. No fever noted blood pressure controlled Hospitalist Physical - Physical exam Narrative exam: VITAL SIGNS: Reviewed. GENERAL: The patient appeared well nourished and normally developed. morbidly obese Vital signs as documented. HEAD: No signs of head trauma. EYES: Pupils are equal. Extraocular motions intact. EARS: Hearing grossly intact. MOUTH: Oropharynx is normal. NECK: No adenopathy, no JVD. CHEST: Chest with clear breath sounds bilaterally. No wheezes, rales, or rhonchi. CARDIAC: Regular rate and rhythm. S1 and S2, without murmurs, gallops, or rubs. VASCULAR: No Edema. Peripheral pulses normal and equal in all extremities. ABDOMEN: Soft, without detectable tenderness. No sign of distention. No rebound or guarding, and no masses palpated. Bowel Sounds normal. MUSCULOSKELETAL: Left upper extremity in a sling would dress and tender to touch patient resistant to movement. Good range of motion of all other major joints. Extremities without clubbing, cyanosis or edema. NEUROLOGIC EXAM: Alert and oriented x 3. No focal sensory or strength deficits. Speech normal. Follows commands. PSYCHIATRIC: Mood normal. SKIN: No rash or lesions. - Constitutional Vitals: Temp Pulse Resp BP Pulse Ox 98.6 F 81 22 151/62 96 03/25/18 11:08 03/25/18 11:08 03/25/18 11:08 03/25/18 11:08 03/25/18 11:08 General appearance: Present: no acute distress Results - Labs CBC & Chem 7: 03/21/18 16:57 03/21/18 16:57 Labs: Laboratory Last Values WBC 8.8 K/mm3 (4.5-11.0) 03/21/18 16:57 RBC 4.10 M/mm3 (3.65-5.03) 03/21/18 16:57 Hgb 12.6 gm/dl (10.1-14.3) 03/21/18 16:57 Hct 38.4 % (30.3-42.9) 03/21/18 16:57 MCV 94 fl (79-97) 03/21/18 16:57 MCH 31 pg (28-32) 03/21/18 16:57 MCHC 33 % (30-34) 03/21/18 16:57 RDW 14.2 % (13.2-15.2) 03/21/18 16:57 Plt Count 208 K/mm3 (140-440) 03/21/18 16:57 Sodium 139 mmol/L (137-145) 03/21/18 16:57 Potassium 4.4 mmol/L (3.6-5.0) 03/21/18 16:57 Chloride 98.3 mmol/L (98-107) 03/21/18 16:57 Carbon Dioxide 30 mmol/L (22-30) 03/21/18 16:57 Anion Gap 15 mmol/L 03/21/18 16:57 BUN 19 mg/dL (7-17) H 03/21/18 16:57 Creatinine 0.5 mg/dL (0.7-1.2) L 03/21/18 16:57 Estimated GFR > 60 ml/min 03/21/18 16:57 BUN/Creatinine Ratio 38 % 03/21/18 16:57 Glucose 225 mg/dL (65-100) H 03/21/18 16:57 POC Glucose 167 (70-105) H 03/25/18 11:13 Calcium 9.3 mg/dL (8.4-10.2) 03/21/18 16:57 Urine Color Claudette (Yellow) 03/22/18 21:41 Urine Turbidity Cloudy (Clear) 03/22/18 21:41 Urine pH 5.0 (5.0-7.0) 03/22/18 21:41 Ur Specific [place] 1.028 (1.003-1.030) 03/22/18 21:41 Urine Protein 30 mg/dl mg/dL (Negative) 03/22/18 21:41 Urine Glucose (UA) Neg mg/dL (Negative) 03/22/18 21:41 Urine Ketones Tr mg/dL (Negative) 03/22/18 21:41 Urine Blood Mod (Negative) 03/22/18 21:41 Urine Nitrite Neg (Negative) 03/22/18 21:41 Urine Bilirubin Neg (Negative) 03/22/18 21:41 Urine Urobilinogen 2.0 mg/dL (<2.0) 03/22/18 21:41 Ur Leukocyte Esterase Lg (Negative) 03/22/18 21:41 Urine WBC (Auto) > 182.0 /HPF (0.0-6.0) H 03/22/18 21:41 Urine RBC (Auto) 73.0 /HPF (0.0-6.0) 03/22/18 21:41 U Epithel Cells (Auto) 5.0 /HPF (0-13.0) 03/22/18 21:41 Urine Bacteria (Auto) 2+ /HPF (Negative) 03/22/18 21:41 Urine WBC Clumps 3+ /HPF 03/22/18 21:41 Urine Mucus 1+ /HPF 03/22/18 21:41
[2018-03-25] MEDS: PRAVACHOL PO SCH (12:51)
[2018-03-25] MEDS: PAXIL PO SCH (12:51)
[2018-03-25] MEDS: GLUCOPHAGE PO SCH ×2 (12:53→18:19)
[2018-03-25] MEDS: WELLBUTRIN SR PO SCH (12:53)
[2018-03-25] MEDS: GLUCOTROL PO SCH ×2 (12:54→18:19)
[2018-03-25] MEDS: TRICOR PO SCH (12:55)
[2018-03-25] MEDS: LEVAQUIN PO SCH (12:55)
[2018-03-25] MEDS: LOVENOX SUB-Q SCH (12:56)
[2018-03-25] MEDS: ALDACTONE PO SCH ×2 (12:56→21:53)
[2018-03-25] MEDS: COREG PO SCH ×2 (12:57→21:52)
--- NOTE | 2018-03-25 13:12 | Progress Note ---
Assessment and Plan Status post closed reduction and insertion of intramedullary nail left humerus Postoperative day 1 Continued observation begin physical therapy hopefully discharged home soon Subjective Date of service: 03/25/18 Principal diagnosis: humerus fracture Interval history: doing better today less pain noted from patient Objective Vital signs: Vital Signs - 12hr 03/25/18 03/25/18 03/25/18 05:13 06:12 07:24 Temperature 98.2 F 98.0 F Pulse Rate 83 83 Respiratory 20 18 20 Rate Blood Pressure 150/60 170/72 O2 Sat by Pulse 96 93 Oximetry 03/25/18 03/25/18 11:08 11:45 Temperature 98.6 F Pulse Rate 81 Respiratory 22 Rate Blood Pressure 151/62 O2 Sat by Pulse 96 95 Oximetry Narrative Exam: post op dressing removed, incisions clean and dry - Labs CBC & BMP: 03/21/18 16:57 03/21/18 16:57 Labs: Abnormal lab results 03/24/18 03/24/18 03/25/18 Range/Units 16:45 22:24 06:14 POC Glucose 188 H 161 H 178 H (70-105) 03/25/18 03/25/18 Range/Units 07:28 11:13 POC Glucose 166 H 167 H (70-105)
[2018-03-25] MEDS: SINGULAIR PO SCH (18:18)
[2018-03-25] MEDS: LATANOPROST 0.005% OU SCH (18:19)
[2018-03-25] MEDS: NACL 0.9% 1000 ML 1,000 ML IV SCH (21:38)
[2018-03-25] MEDS: DESYREL PO SCH (21:52)
[2018-03-25] MEDS: WELLBUTRIN PO SCH (21:53)
[2018-03-25] MEDS: DITROPAN XL PO SCH (21:53)
[2018-03-26] MEDS: HumuLIN R SUB-Q SCH ×6 (00:43→17:59)
[2018-03-26] MEDS: REGLAN IV SCH ×6 (00:44→23:59)
[2018-03-26] MEDS: MORPHINE IV PRN (01:25)
[2018-03-26] MEDS: LASIX PO SCH (05:28)
--- NOTE | 2018-03-26 09:25 | Discharge Summary ---
Providers - Providers Date of Admission: 03/21/18 15:41 Attending physician: LIZA PATTON MD 03/21/18 Consult to Physician [CONS] Routine Comment: Consulting Provider: APOLLO VALLADARES Physician Instructions: Reason For Exam: preoperative evaluation 03/22/18 01:57 Consult to Physician [CONS] Routine Comment: Spoke with Dr. Pinon, to see pt in am. Consulting Provider: IGNACIO PINON Physician Instructions: Reason For Exam: Pre-Op 03/22/18 18:37 Consult to Case Management [CONS] Routine Services Needed at Discharge: Home Health Services Complex Care Nurse Other Notified:: [employer] Additional Physician Instructions: pt will need rehab or snf 03/22/18 18:40 Physical Therapy Evaluation and Treat [CONS] Routine Comment: pendulum exercises left shoulder Reason For Exam: postop evaluation Weight bearing status?: Full wt bearing Assistive devices?: Yes If so list: Walker 03/23/18 13:20 Consult Acute Rehabilitation [CONS] Routine Consulting Provider: VENANCIO BEGUM III Reason For Exam: rehab for shoulder surgery 03/25/18 10:04 Occupational Therapy Evaluate and Treat [CONS] Routine Comment: Reason For Exam: Fx left humerus Primary care physician: MATTHEW HOLDEN Hospitalization Reason for admission: LEFT HUMERUS FRACTURE Condition: Stable Hospital course: Patient is a 67 year old female who fell down accidentally with pain and difficulty moving her left upper extremity. there is no history of chest pain, shortness of breath ,fever or chills. patient also has no history of nausea and vomiting. On admission patient was noted with fracture of the left humerus and underwent closed reduction and insertion of nail of left humerus. she had some pain issues and with limited mobility on the left upper ext was recommended for SNF or inpatient Rehab. she is clinically stable for discharge. She was also treated for acute cystitis Extensive counselling was provided on weight management. I have also recommended outpatient pulmonary eval for Sleep apnea. patient is awaiting authorization for IRU (1) Left humeral fracture (2) HTN (hypertension) (3) Diabetes (4) Dyslipidemia (5) Morbid obesity (6) Sleep apnea (7) Acute cystitis with no evidence of sepsis Disposition: [id number] INPT REHAB FACILITY Time spent for discharge: 35 MINS Core Measure Documentation - Palliative Care Palliative Care/ Comfort Measures: Not Applicable - Core Measures Any of the following diagnoses?: none Exam - Physical Exam Narrative exam: VITAL SIGNS: Reviewed. GENERAL: The patient appeared well nourished and normally developed. morbidly obese Vital signs as documented. HEAD: No signs of head trauma. EYES: Pupils are equal. Extraocular motions intact. EARS: Hearing grossly intact. MOUTH: Oropharynx is normal. NECK: No adenopathy, no JVD. CHEST: Chest with clear breath sounds bilaterally. No wheezes, rales, or rhonchi. CARDIAC: Regular rate and rhythm. S1 and S2, without murmurs, gallops, or rubs. VASCULAR: No Edema. Peripheral pulses normal and equal in all extremities. ABDOMEN: Soft, without detectable tenderness. No sign of distention. No rebound or guarding, and no masses palpated. Bowel Sounds normal. MUSCULOSKELETAL: Left upper extremity in a sling would dress and tender to touch patient resistant to movement. Good range of motion of all other major joints. Extremities without clubbing, cyanosis or edema. NEUROLOGIC EXAM: Alert and oriented x 3. No focal sensory or strength deficits. Speech normal. Follows commands. PSYCHIATRIC: Mood normal. SKIN: No rash or lesions. - Constitutional Vitals: Temp Pulse Resp BP Pulse Ox 97.4 F L 76 17 103/35 97 03/26/18 05:49 03/26/18 05:53 03/26/18 05:53 03/26/18 05:53 03/26/18 09:02 Plan Activity: advance as tolerated, fall precautions Diet: diabetic Special Instructions: record daily weights, record daily BP diary, record blood sugar diary Follow up with: MATTHEW HOLDEN MD [Primary Care Provider] - 7 Days TISHA LANZA MD [Staff Physician] - 7 Days Prescriptions: HYDROcodone/ACETAMINOPHEN [Hydrocodone-Acetamin 10-325 mg] 1 each PO Q8H PRN #14 tablet PRN Reason: Pain , Severe (7-10)
[2018-03-26] MEDS: LOVENOX SUB-Q SCH (09:31)
[2018-03-26] MEDS: GLUCOTROL PO SCH ×2 (09:32→17:21)
[2018-03-26] MEDS: PAXIL PO SCH (09:32)
[2018-03-26] MEDS: GLUCOPHAGE PO SCH ×2 (09:33→17:21)
[2018-03-26] MEDS: WELLBUTRIN SR PO SCH (09:33)
[2018-03-26] MEDS: COREG PO SCH ×2 (09:33→23:54)
[2018-03-26] MEDS: PRAVACHOL PO SCH (09:33)
[2018-03-26] MEDS: ALDACTONE PO SCH ×2 (09:33→23:57)
[2018-03-26] MEDS: TRICOR PO SCH (09:34)
[2018-03-26] MEDS: NORCO 10/325 PO PRN ×2 (09:46→17:27)
[2018-03-26] MEDS: LEVAQUIN PO SCH (12:30)
--- NOTE | 2018-03-26 16:12 | Progress Note ---
Assessment and Plan Assessment and plan: Patient is a 67 year old female who fell down accidentally with pain and difficulty moving her left upper extremity. there is no history of chest pain, shortness of breath ,fever or chills. patient also has no history of nausea and vomiting. On admission patient was noted with fracture of the left humerus and underwent closed reduction and insertion of nail of left humerus. she had some pain issues and with limited mobility on the left upper ext was recommended for SNF or inpatient Rehab. she is clinically stable for discharge. She was also treated for acute cystitis Extensive counselling was provided on weight management. I have also recommended outpatient pulmonary eval for Sleep apnea. patient is awaiting authorization for IRU (1) Left humeral fracture (2) HTN (hypertension) (3) Diabetes (4) Dyslipidemia (5) Morbid obesity (6) Sleep apnea (7) Acute cystitis with no evidence of sepsis PLAN Continue supportive care and pain control Anticipate discharge to IRU in am Awaiting authorization. Continue PT/OT while in house. History Interval history: Patient is seen today for: S/p closed reduction and insertion of nail of left humerus Seen and examined at bedside; 24hour events reviewed; nursing staff ; nausea with some light vomiting. still with pain at surgical site but improved. No fever noted blood pressure controlled Hospitalist Physical - Physical exam Narrative exam: VITAL SIGNS: Reviewed. GENERAL: The patient appeared well nourished and normally developed. morbidly obese Vital signs as documented. HEAD: No signs of head trauma. EYES: Pupils are equal. Extraocular motions intact. EARS: Hearing grossly intact. MOUTH: Oropharynx is normal. NECK: No adenopathy, no JVD. CHEST: Chest with clear breath sounds bilaterally. No wheezes, rales, or rhonchi. CARDIAC: Regular rate and rhythm. S1 and S2, without murmurs, gallops, or rubs. VASCULAR: No Edema. Peripheral pulses normal and equal in all extremities. ABDOMEN: Soft, without detectable tenderness. No sign of distention. No rebound or guarding, and no masses palpated. Bowel Sounds normal. MUSCULOSKELETAL: Left upper extremity in a sling would dress and tender to touch patient resistant to movement. Good range of motion of all other major joints. Extremities without clubbing, cyanosis or edema. NEUROLOGIC EXAM: Alert and oriented x 3. No focal sensory or strength deficits. Speech normal. Follows commands. PSYCHIATRIC: Mood normal. SKIN: No rash or lesions. - Constitutional Vitals: Temp Pulse Resp BP Pulse Ox 98.6 F 73 19 124/47 96 03/26/18 15:22 03/26/18 15:23 03/26/18 15:22 03/26/18 15:22 03/26/18 15:23 General appearance: Present: no acute distress Results - Labs CBC & Chem 7: 03/21/18 16:57 03/21/18 16:57 Labs: Laboratory Last Values WBC 8.8 K/mm3 (4.5-11.0) 03/21/18 16:57 RBC 4.10 M/mm3 (3.65-5.03) 03/21/18 16:57 Hgb 12.6 gm/dl (10.1-14.3) 03/21/18 16:57 Hct 38.4 % (30.3-42.9) 03/21/18 16:57 MCV 94 fl (79-97) 03/21/18 16:57 MCH 31 pg (28-32) 03/21/18 16:57 MCHC 33 % (30-34) 03/21/18 16:57 RDW 14.2 % (13.2-15.2) 03/21/18 16:57 Plt Count 208 K/mm3 (140-440) 03/21/18 16:57 Sodium 139 mmol/L (137-145) 03/21/18 16:57 Potassium 4.4 mmol/L (3.6-5.0) 03/21/18 16:57 Chloride 98.3 mmol/L (98-107) 03/21/18 16:57 Carbon Dioxide 30 mmol/L (22-30) 03/21/18 16:57 Anion Gap 15 mmol/L 03/21/18 16:57 BUN 19 mg/dL (7-17) H 03/21/18 16:57 Creatinine 0.5 mg/dL (0.7-1.2) L 03/21/18 16:57 Estimated GFR > 60 ml/min 03/21/18 16:57 BUN/Creatinine Ratio 38 % 03/21/18 16:57 Glucose 225 mg/dL (65-100) H 03/21/18 16:57 POC Glucose 202 (70-105) H 03/26/18 11:07 Calcium 9.3 mg/dL (8.4-10.2) 03/21/18 16:57 Urine Color Claudette (Yellow) 03/22/18 21:41 Urine Turbidity Cloudy (Clear) 03/22/18 21:41 Urine pH 5.0 (5.0-7.0) 03/22/18 21:41 Ur Specific [place] 1.028 (1.003-1.030) 03/22/18 21:41 Urine Protein 30 mg/dl mg/dL (Negative) 03/22/18 21:41 Urine Glucose (UA) Neg mg/dL (Negative) 03/22/18 21:41 Urine Ketones Tr mg/dL (Negative) 03/22/18 21:41 Urine Blood Mod (Negative) 03/22/18 21:41 Urine Nitrite Neg (Negative) 03/22/18 21:41 Urine Bilirubin Neg (Negative) 03/22/18 21:41 Urine Urobilinogen 2.0 mg/dL (<2.0) 03/22/18 21:41 Ur Leukocyte Esterase Lg (Negative) 03/22/18 21:41 Urine WBC (Auto) > 182.0 /HPF (0.0-6.0) H 03/22/18 21:41 Urine RBC (Auto) 73.0 /HPF (0.0-6.0) 03/22/18 21:41 U Epithel Cells (Auto) 5.0 /HPF (0-13.0) 03/22/18 21:41 Urine Bacteria (Auto) 2+ /HPF (Negative) 03/22/18 21:41 Urine WBC Clumps 3+ /HPF 03/22/18 21:41 Urine Mucus 1+ /HPF 03/22/18 21:41
[2018-03-26] MEDS: LATANOPROST 0.005% OU SCH (17:21)
[2018-03-26] MEDS: SINGULAIR PO SCH (17:21)
--- NOTE | 2018-03-26 21:10 | XRay Report ---
FINAL REPORT EXAM: XR HUMERUS 2+V LT HISTORY: post op evaluation TECHNIQUE: Two views left humerus Comparison: 03/18/2018 FINDINGS: There has been intramedullary conchita placement in the comminuted left humeral fracture with improved cat tomic alignment. This is a spiral fracture of the humerus shaft without humeral neck involvement. No hardware miss placement or complication identified. IMPRESSION: Status post ORIF comminuted angulated left humeral shaft fracture with improved alignment and no evid ence for hardware complication.
[2018-03-26] MEDS: NORCO 5/325 PO PRN (23:56)
[2018-03-26] MEDS: DESYREL PO SCH (23:56)
[2018-03-26] MEDS: DITROPAN XL PO SCH (23:58)
[2018-03-26] MEDS: WELLBUTRIN PO SCH (23:59)
[2018-03-27] MEDS: HumuLIN R SUB-Q SCH ×7 (03:05→22:46)
[2018-03-27] MEDS: FLEXERIL PO PRN ×3 (03:29→22:57)
[2018-03-27] MEDS: ULTRAM PO PRN ×2 (03:31→11:28)
[2018-03-27] MEDS: LOVENOX SUB-Q SCH ×2 (08:19→10:10)
[2018-03-27] MEDS: GLUCOPHAGE PO SCH ×2 (08:20→17:14)
[2018-03-27] MEDS: GLUCOTROL PO SCH ×2 (08:20→17:24)
[2018-03-27] MEDS: REGLAN IV SCH ×4 (08:20→22:45)
[2018-03-27] MEDS: LASIX PO SCH (08:21)
[2018-03-27] MEDS: TRICOR PO SCH ×2 (08:23→10:11)
[2018-03-27] MEDS: PAXIL PO SCH ×2 (08:24→10:10)
[2018-03-27] MEDS: COREG PO SCH ×3 (08:24→22:45)
[2018-03-27] MEDS: WELLBUTRIN SR PO SCH ×2 (08:24→10:11)
[2018-03-27] MEDS: LEVAQUIN PO SCH ×2 (08:24→10:10)
[2018-03-27] MEDS: ALDACTONE PO SCH ×3 (08:25→22:44)
[2018-03-27] MEDS: PRAVACHOL PO SCH ×2 (08:25→10:10)
--- NOTE | 2018-03-27 15:32 | Progress Note ---
Assessment and Plan Assessment and plan: Patient is a 67 year old female who fell down accidentally with pain and difficulty moving her left upper extremity. there is no history of chest pain, shortness of breath ,fever or chills. patient also has no history of nausea and vomiting. On admission patient was noted with fracture of the left humerus and underwent closed reduction and insertion of nail of left humerus. she had some pain issues and with limited mobility on the left upper ext was recommended for SNF or inpatient Rehab. she is clinically stable for discharge. She was also treated for acute cystitis Extensive counselling was provided on weight management. Recommended outpatient pulmonary eval for Sleep apnea. patient is awaiting authorization for IRU (1) Left humeral fracture (2) HTN (hypertension) (3) Diabetes (4) Dyslipidemia (5) Morbid obesity (6) Sleep apnea (7) Acute cystitis with no evidence of sepsis Discharge per primary. History Interval history: Patient was seen and evaluated this morning, patient was resting comfortably. Hospitalist Physical - Physical exam Narrative exam: Not in cardiopulmonary distress. The patient is obese. Vital signs as documented. Head exam is unremarkable. No scleral icterus . Neck is without jugular venous distension, thyromegaly, or carotid bruits. Lungs are clear to auscultation. Cardiac exam reveals regular rate and Rhythm. Abdominal exam reveals normal bowel sounds. Extremities are nonedematous and both femoral and pedal pulses are normal. BIT GRINDER: Alert and oriented 3. No focal weakness. - Constitutional Vitals: Temp Pulse Resp BP Pulse Ox 98.0 F 78 20 154/70 92 03/27/18 07:09 03/27/18 07:09 03/27/18 11:28 03/27/18 07:09 03/27/18 10:00 General appearance: Present: no acute distress Results - Labs CBC & Chem 7: 03/21/18 16:57 03/21/18 16:57 Labs: Laboratory Last Values WBC 8.8 K/mm3 (4.5-11.0) 03/21/18 16:57 RBC 4.10 M/mm3 (3.65-5.03) 03/21/18 16:57 Hgb 12.6 gm/dl (10.1-14.3) 03/21/18 16:57 Hct 38.4 % (30.3-42.9) 03/21/18 16:57 MCV 94 fl (79-97) 03/21/18 16:57 MCH 31 pg (28-32) 03/21/18 16:57 MCHC 33 % (30-34) 03/21/18 16:57 RDW 14.2 % (13.2-15.2) 03/21/18 16:57 Plt Count 208 K/mm3 (140-440) 03/21/18 16:57 Sodium 139 mmol/L (137-145) 03/21/18 16:57 Potassium 4.4 mmol/L (3.6-5.0) 03/21/18 16:57 Chloride 98.3 mmol/L (98-107) 03/21/18 16:57 Carbon Dioxide 30 mmol/L (22-30) 03/21/18 16:57 Anion Gap 15 mmol/L 03/21/18 16:57 BUN 19 mg/dL (7-17) H 03/21/18 16:57 Creatinine 0.5 mg/dL (0.7-1.2) L 03/21/18 16:57 Estimated GFR > 60 ml/min 03/21/18 16:57 BUN/Creatinine Ratio 38 % 03/21/18 16:57 Glucose 225 mg/dL (65-100) H 03/21/18 16:57 POC Glucose 203 (70-105) H 03/27/18 11:22 Calcium 9.3 mg/dL (8.4-10.2) 03/21/18 16:57 Urine Color Claudette (Yellow) 03/22/18 21:41 Urine Turbidity Cloudy (Clear) 03/22/18 21:41 Urine pH 5.0 (5.0-7.0) 03/22/18 21:41 Ur Specific [place] 1.028 (1.003-1.030) 03/22/18 21:41 Urine Protein 30 mg/dl mg/dL (Negative) 03/22/18 21:41 Urine Glucose (UA) Neg mg/dL (Negative) 03/22/18 21:41 Urine Ketones Tr mg/dL (Negative) 03/22/18 21:41 Urine Blood Mod (Negative) 03/22/18 21:41 Urine Nitrite Neg (Negative) 03/22/18 21:41 Urine Bilirubin Neg (Negative) 03/22/18 21:41 Urine Urobilinogen 2.0 mg/dL (<2.0) 03/22/18 21:41 Ur Leukocyte Esterase Lg (Negative) 03/22/18 21:41 Urine WBC (Auto) > 182.0 /HPF (0.0-6.0) H 03/22/18 21:41 Urine RBC (Auto) 73.0 /HPF (0.0-6.0) 03/22/18 21:41 U Epithel Cells (Auto) 5.0 /HPF (0-13.0) 03/22/18 21:41 Urine Bacteria (Auto) 2+ /HPF (Negative) 03/22/18 21:41 Urine WBC Clumps 3+ /HPF 03/22/18 21:41 Urine Mucus 1+ /HPF 03/22/18 21:41
[2018-03-27] MEDS: SINGULAIR PO SCH (17:15)
[2018-03-27] MEDS: LATANOPROST 0.005% OU SCH (17:16)
[2018-03-27] MEDS: NORCO 10/325 PO PRN (17:28)
[2018-03-27] MEDS: DESYREL PO SCH (22:43)
[2018-03-27] MEDS: WELLBUTRIN PO SCH (22:44)
[2018-03-27] MEDS: DITROPAN XL PO SCH (22:44)
[2018-03-27] MEDS: NORCO 5/325 PO PRN (22:52)
[2018-03-28] MEDS: HumuLIN R SUB-Q SCH ×5 (04:14→20:06)
[2018-03-28] MEDS: LASIX PO SCH (05:15)
[2018-03-28] MEDS: NORCO 10/325 PO PRN ×3 (05:16→21:50)
[2018-03-28] MEDS: TRICOR PO SCH ×2 (08:51→11:33)
[2018-03-28] MEDS: GLUCOTROL PO SCH ×2 (08:51→17:52)
[2018-03-28] MEDS: PRAVACHOL PO SCH ×2 (08:51→11:33)
[2018-03-28] MEDS: WELLBUTRIN SR PO SCH ×2 (08:51→11:34)
[2018-03-28] MEDS: COREG PO SCH ×3 (08:52→21:50)
[2018-03-28] MEDS: LEVAQUIN PO SCH ×2 (08:52→11:32)
[2018-03-28] MEDS: ALDACTONE PO SCH ×2 (08:52→21:48)
[2018-03-28] MEDS: PAXIL PO SCH ×2 (08:52→11:33)
[2018-03-28] MEDS: GLUCOPHAGE PO SCH ×2 (08:54→17:44)
[2018-03-28] MEDS: REGLAN IV SCH ×4 (08:54→21:50)
[2018-03-28] MEDS: LOVENOX SUB-Q SCH ×2 (08:54→11:33)
[2018-03-28] MEDS: MORPHINE IV PRN (08:55)
--- NOTE | 2018-03-28 15:18 | Progress Note ---
Assessment and Plan Assessment and plan: Patient is a 67 year old female who fell down accidentally with pain and difficulty moving her left upper extremity. there is no history of chest pain, shortness of breath ,fever or chills. patient also has no history of nausea and vomiting. On admission patient was noted with fracture of the left humerus and underwent closed reduction and insertion of nail of left humerus. she had some pain issues and with limited mobility on the left upper ext was recommended for SNF or inpatient Rehab. she is clinically stable for discharge. She was also treated for acute cystitis Extensive counselling was provided on weight management. Recommended outpatient pulmonary eval for Sleep apnea. patient is awaiting authorization for IRU (1) Left humeral fracture (2) HTN (hypertension) (3) Diabetes (4) Dyslipidemia (5) Morbid obesity (6) Sleep apnea (7) Acute cystitis with no evidence of sepsis Discharge per primary. Patient is to be discharged to SNF. History Interval history: Patient was seen and evaluated this morning, patient was resting comfortably. Hospitalist Physical - Physical exam Narrative exam: Not in cardiopulmonary distress. The patient is obese. Vital signs as documented. Head exam is unremarkable. No scleral icterus . Neck is without jugular venous distension, thyromegaly, or carotid bruits. Lungs are clear to auscultation. Cardiac exam reveals regular rate and Rhythm. Abdominal exam reveals normal bowel sounds. Extremities are nonedematous and both femoral and pedal pulses are normal. RESIDENTIAL LIVING ASSISTANT: Alert and oriented 3. No focal weakness. - Constitutional Vitals: Temp Pulse Resp BP Pulse Ox 98.1 F 76 12 118/48 95 03/28/18 11:37 03/28/18 11:35 03/28/18 11:37 03/28/18 11:37 03/28/18 11:35 General appearance: Present: no acute distress Results - Labs CBC & Chem 7: 03/21/18 16:57 03/21/18 16:57 Labs: Laboratory Last Values WBC 8.8 K/mm3 (4.5-11.0) 03/21/18 16:57 RBC 4.10 M/mm3 (3.65-5.03) 03/21/18 16:57 Hgb 12.6 gm/dl (10.1-14.3) 03/21/18 16:57 Hct 38.4 % (30.3-42.9) 03/21/18 16:57 MCV 94 fl (79-97) 03/21/18 16:57 MCH 31 pg (28-32) 03/21/18 16:57 MCHC 33 % (30-34) 03/21/18 16:57 RDW 14.2 % (13.2-15.2) 03/21/18 16:57 Plt Count 208 K/mm3 (140-440) 03/21/18 16:57 Sodium 139 mmol/L (137-145) 03/21/18 16:57 Potassium 4.4 mmol/L (3.6-5.0) 03/21/18 16:57 Chloride 98.3 mmol/L (98-107) 03/21/18 16:57 Carbon Dioxide 30 mmol/L (22-30) 03/21/18 16:57 Anion Gap 15 mmol/L 03/21/18 16:57 BUN 19 mg/dL (7-17) H 03/21/18 16:57 Creatinine 0.5 mg/dL (0.7-1.2) L 03/21/18 16:57 Estimated GFR > 60 ml/min 03/21/18 16:57 BUN/Creatinine Ratio 38 % 03/21/18 16:57 Glucose 225 mg/dL (65-100) H 03/21/18 16:57 POC Glucose 123 (70-105) H 03/28/18 12:03 Calcium 9.3 mg/dL (8.4-10.2) 03/21/18 16:57 Urine Color Claudette (Yellow) 03/22/18 21:41 Urine Turbidity Cloudy (Clear) 03/22/18 21:41 Urine pH 5.0 (5.0-7.0) 03/22/18 21:41 Ur Specific [place] 1.028 (1.003-1.030) 03/22/18 21:41 Urine Protein 30 mg/dl mg/dL (Negative) 03/22/18 21:41 Urine Glucose (UA) Neg mg/dL (Negative) 03/22/18 21:41 Urine Ketones Tr mg/dL (Negative) 03/22/18 21:41 Urine Blood Mod (Negative) 03/22/18 21:41 Urine Nitrite Neg (Negative) 03/22/18 21:41 Urine Bilirubin Neg (Negative) 03/22/18 21:41 Urine Urobilinogen 2.0 mg/dL (<2.0) 03/22/18 21:41 Ur Leukocyte Esterase Lg (Negative) 03/22/18 21:41 Urine WBC (Auto) > 182.0 /HPF (0.0-6.0) H 03/22/18 21:41 Urine RBC (Auto) 73.0 /HPF (0.0-6.0) 03/22/18 21:41 U Epithel Cells (Auto) 5.0 /HPF (0-13.0) 03/22/18 21:41 Urine Bacteria (Auto) 2+ /HPF (Negative) 03/22/18 21:41 Urine WBC Clumps 3+ /HPF 03/22/18 21:41 Urine Mucus 1+ /HPF 03/22/18 21:41 Nutrition/Malnutrition Assess - Dietary Evaluation Nutrition/Malnutrition Findings: Nutrition Notes Start: 03/28/18 09:13 Freq: Status: Active Protocol: Document 03/28/18 09:14 CT (Rec: 03/28/18 10:30 CT [id number]) Co-Sign 03/28/18 09:14 LP Nutrition Notes Need for Assessment generated from: LOS Initial or Follow up Brief Note Current Diagnosis Diabetes Hypertension Other Pertinent Diagnosis dyslipidemia Current Diet Regular Subjective/Other Information RD screen for LOS. Pt consuming 100% of meals per ADL. Nutrition Intervention Revisit per MD consult or patient Sign Off request:
[2018-03-28] MEDS: SINGULAIR PO SCH (17:44)
[2018-03-28] MEDS: LATANOPROST 0.005% OU SCH (17:52)
[2018-03-28] MEDS: DITROPAN XL PO SCH (21:49)
[2018-03-28] MEDS: DESYREL PO SCH (21:49)
[2018-03-28] MEDS: WELLBUTRIN PO SCH (21:50)
[2018-03-29] MEDS: HumuLIN R SUB-Q SCH ×6 (00:58→20:56)
[2018-03-29] MEDS: LASIX PO SCH (05:18)
[2018-03-29] MEDS: GLUCOPHAGE PO SCH ×2 (07:52→16:00)
[2018-03-29] MEDS: NORCO 10/325 PO PRN ×2 (07:52→15:59)
[2018-03-29] MEDS: GLUCOTROL PO SCH ×3 (07:52→15:59)
[2018-03-29] MEDS: REGLAN IV SCH ×3 (07:55→16:00)
[2018-03-29] MEDS: PAXIL PO SCH (10:03)
[2018-03-29] MEDS: COREG PO SCH (10:03)
[2018-03-29] MEDS: LOVENOX SUB-Q SCH (10:03)
[2018-03-29] MEDS: PRAVACHOL PO SCH (10:04)
[2018-03-29] MEDS: LEVAQUIN PO SCH (10:04)
[2018-03-29] MEDS: TRICOR PO SCH (10:04)
[2018-03-29] MEDS: ALDACTONE PO SCH (10:04)
[2018-03-29] MEDS: WELLBUTRIN SR PO SCH (10:04)
--- NOTE | 2018-03-29 14:57 | Progress Note ---
Assessment and Plan Assessment and plan: Patient is a 67 year old female who fell down accidentally with pain and difficulty moving her left upper extremity. there is no history of chest pain, shortness of breath ,fever or chills. patient also has no history of nausea and vomiting. On admission patient was noted with fracture of the left humerus and underwent closed reduction and insertion of nail of left humerus. she had some pain issues and with limited mobility on the left upper ext was recommended for SNF or inpatient Rehab. she is clinically stable for discharge. She was also treated for acute cystitis Extensive counselling was provided on weight management. Recommended outpatient pulmonary eval for Sleep apnea. patient is awaiting authorization for IRU (1) Left humeral fracture (2) HTN (hypertension) (3) Diabetes (4) Dyslipidemia (5) Morbid obesity (6) Sleep apnea (7) Acute cystitis with no evidence of sepsis Discharge per primary. Patient will be discharged home with home health. History Interval history: Patient was seen and evaluated this morning, patient was resting comfortably. Hospitalist Physical - Physical exam Narrative exam: Not in cardiopulmonary distress. The patient is obese. Vital signs as documented. Head exam is unremarkable. No scleral icterus . Neck is without jugular venous distension, thyromegaly, or carotid bruits. Lungs are clear to auscultation. Cardiac exam reveals regular rate and Rhythm. Abdominal exam reveals normal bowel sounds. Extremities are nonedematous and both femoral and pedal pulses are normal. DRIER OPERATOR: Alert and oriented 3. No focal weakness. - Constitutional Vitals: Temp Pulse Resp BP Pulse Ox 98.5 F 80 18 140/64 94 03/29/18 11:29 03/29/18 11:29 03/29/18 11:29 03/29/18 11:29 03/29/18 11:29 General appearance: Present: no acute distress Results - Labs CBC & Chem 7: 03/21/18 16:57 03/21/18 16:57 Labs: Laboratory Last Values WBC 8.8 K/mm3 (4.5-11.0) 03/21/18 16:57 RBC 4.10 M/mm3 (3.65-5.03) 03/21/18 16:57 Hgb 12.6 gm/dl (10.1-14.3) 03/21/18 16:57 Hct 38.4 % (30.3-42.9) 03/21/18 16:57 MCV 94 fl (79-97) 03/21/18 16:57 MCH 31 pg (28-32) 03/21/18 16:57 MCHC 33 % (30-34) 03/21/18 16:57 RDW 14.2 % (13.2-15.2) 03/21/18 16:57 Plt Count 208 K/mm3 (140-440) 03/21/18 16:57 Sodium 139 mmol/L (137-145) 03/21/18 16:57 Potassium 4.4 mmol/L (3.6-5.0) 03/21/18 16:57 Chloride 98.3 mmol/L (98-107) 03/21/18 16:57 Carbon Dioxide 30 mmol/L (22-30) 03/21/18 16:57 Anion Gap 15 mmol/L 03/21/18 16:57 BUN 19 mg/dL (7-17) H 03/21/18 16:57 Creatinine 0.5 mg/dL (0.7-1.2) L 03/21/18 16:57 Estimated GFR > 60 ml/min 03/21/18 16:57 BUN/Creatinine Ratio 38 % 03/21/18 16:57 Glucose 225 mg/dL (65-100) H 03/21/18 16:57 POC Glucose 172 (70-105) H 03/29/18 11:34 Calcium 9.3 mg/dL (8.4-10.2) 03/21/18 16:57 Urine Color [place] (Yellow) 03/22/18 21:41 Urine Turbidity Cloudy (Clear) 03/22/18 21:41 Urine pH 5.0 (5.0-7.0) 03/22/18 21:41 Ur Specific [place] 1.028 (1.003-1.030) 03/22/18 21:41 Urine Protein 30 mg/dl mg/dL (Negative) 03/22/18 21:41 Urine Glucose (UA) Neg mg/dL (Negative) 03/22/18 21:41 Urine Ketones Tr mg/dL (Negative) 03/22/18 21:41 Urine Blood Mod (Negative) 03/22/18 21:41 Urine Nitrite Neg (Negative) 03/22/18 21:41 Urine Bilirubin Neg (Negative) 03/22/18 21:41 Urine Urobilinogen 2.0 mg/dL (<2.0) 03/22/18 21:41 Ur Leukocyte Esterase Lg (Negative) 03/22/18 21:41 Urine WBC (Auto) > 182.0 /HPF (0.0-6.0) H 03/22/18 21:41 Urine RBC (Auto) 73.0 /HPF (0.0-6.0) 03/22/18 21:41 U Epithel Cells (Auto) 5.0 /HPF (0-13.0) 03/22/18 21:41 Urine Bacteria (Auto) 2+ /HPF (Negative) 03/22/18 21:41 Urine WBC Clumps 3+ /HPF 03/22/18 21:41 Urine Mucus 1+ /HPF 03/22/18 21:41 Nutrition/Malnutrition Assess - Dietary Evaluation Nutrition/Malnutrition Findings: Nutrition Notes Start: 03/28/18 09:13 Freq: Status: Active Protocol: Document 03/28/18 09:14 CT (Rec: 03/28/18 10:30 CT [id number]) Co-Sign 03/28/18 09:14 LP Nutrition Notes Need for Assessment generated from: LOS Initial or Follow up Brief Note Current Diagnosis Diabetes Hypertension Other Pertinent Diagnosis dyslipidemia Current Diet Regular Subjective/Other Information RD screen for LOS. Pt consuming 100% of meals per ADL. Nutrition Intervention Revisit per MD consult or patient Sign Off request:
[2018-03-29] MEDS: LATANOPROST 0.005% OU SCH (17:02)
[2018-03-29] MEDS: SINGULAIR PO SCH (17:21)
[2018-03-29 20:03] VITALS: BP 139/63
--- NOTE | 2018-08-09 11:21 | History and Physical Report ---
History of Present Illness Date of admission: 03/21/18 15:41 Chief complaint: Left shoulder pain History of present illness: 67-year-old female who complained of left shoulder and arm pain after a fall on 03/18/2018, she was seen in the emergency room at [facility] shortly afterwards where x-rays were taken revealing a displaced proximal left humerus fracture. Past History Past Medical History: diabetes, hypertension, other (1. Asthma 2. Glaucoma 3. Venous Insufficiency) Social history: denies: smoking, alcohol abuse Family history: no significant family history Medications and Allergies Allergies Allergy/AdvReac Type Severity Reaction Status Date / Time meperidine HCl [From Demerol] Allergy Rash Verified 04/04/13 16:22 NSAIDS (Non-Steroidal Allergy Rash Verified 04/04/13 16:22 Anti-Inflamma Penicillins Allergy Rash Verified 04/04/13 16:22 Home Medications Medication Instructions Recorded Confirmed Last Taken Type Liraglutide [Victoza 2-Shiva] 1.8 mg IM QHS 04/04/13 03/22/18 03/20/18 History buPROPion [Wellbutrin] 100 mg PO HS 04/04/13 03/22/18 03/21/18 History Ipratropium/Albuterol Sulfate 2 inh INHALATION PRN PRN 04/12/13 03/22/18 03/07/18 History [Combivent Respimat] Carvedilol [Coreg] 12.5 mg PO BID #60 tablet 04/15/13 03/22/18 03/21/18 Rx Fenofibrate [Lofibra] 160 mg PO DAILY #30 tablet 04/15/13 03/22/18 03/21/18 Rx Furosemide [Lasix] 20 mg PO DAILY #30 tablet 04/15/13 03/22/18 03/19/18 Rx Montelukast [Singulair] 10 mg PO QPM #30 tablet 04/15/13 03/22/18 03/21/18 Rx PARoxetine [Paxil] 3 tab PO QDAY #30 tablet 04/15/13 03/22/18 03/21/18 Rx Pravastatin [Pravachol] 40 mg PO QDAY #30 tablet 04/15/13 03/22/18 03/21/18 Rx Spironolactone 25 mg PO BID #60 tablet 04/15/13 03/22/1819 Rx buPROPion SR [Wellbutrin SR] 150 mg PO QDAY #30 tablet 04/15/13 03/22/18 03/21/18 Rx glipiZIDE [Glucotrol] 10 mg PO BID #60 tablet 04/15/13 03/22/18 03/21/18 Rx Cyclobenzaprine [Flexeril 10 MG 10 mg PO TID PRN #14 tablet 03/18/18 03/22/18 03/21/18 Rx TAB] oxyCODONE /ACETAMINOPHEN [Percocet 1 - 2 tab PO Q6HR PRN #30 tablet 03/18/18 03/22/18 03/21/18 Rx 5/325 mg] 20 mg Bimatoprost [Lumigan 0.01%] 1 drop OU QHS 03/22/18 03/22/18 03/21/18 History Omeprazole [PriLOSEC] 40 mg PO HS 03/22/18 03/22/18 03/21/18 History Oxybutynin Chloride [Ditropan Xl] 10 mg PO QHS 03/22/18 03/22/18 03/21/18 History Tramadol HCl [Ultram] 75 mg PO PRN PRN 03/22/18 03/22/18 12/28/17 History metFORMIN [Glucophage] 500 mg PO BID 03/22/18 03/22/18 03/21/18 History traZODone [Desyrel] 75 mg PO HS 03/22/18 03/22/18 03/19/18 History Paxil 60 mg PO DAILY 03/23/18 03/23/18 Unknown History HYDROcodone/ACETAMINOPHEN 1 each PO Q8H PRN #14 tablet 03/26/18 Unknown Rx [Hydrocodone-Acetamin 10-325 mg] oxyCODONE [roxiCODONE] 5 mg PO Q6HR PRN #30 tablet 03/29/18 Unknown Rx Physical Examination - Physical exam Narrative exam: On physical examination significant musculoskeletal findings related to the left upper extremity. She is noted to have swelling deformity there was tenderness on palpation at the proximal humerus distal neurovascular status is intact she had good capillary refill distally Eyes: PERRL ENT: Positive: clear oral mucosa Respiratory effort: normal Respiratory: bilateral: CTA Rhythm: regular Heart Sounds: Positive: S1 & S2 General gastrointestinal: Positive: soft, non-tender, non-distended, normal bowel sounds Integumentary: clear, warm, dry Neurologic: Positive: CNII-XII intact, moves all extremities, gait normal. Negative: focal deficits Results - Labs Result Diagrams: 03/21/18 16:57 03/21/18 16:57 Labs: H & H 03/21/18 Range/Units 16:57 Hgb 12.6 (10.1-14.3) gm/dl Hct 38.4 (30.3-42.9) % All other labs normal. Assessment and Plan Displaced left proximal humerus fracture Recommendations -based on the history and physical examination and review of the x-rays which show a displaced proximal humerus fracture I have recommended a closed reduction and insertion of intramedullary nail left proximal humerus
--- NOTE | 2018-08-09 11:27 | Discharge Summary ---
Providers - Providers Date of Admission: 03/21/18 15:41 Date of discharge: 03/29/18 Attending physician: LIZA PATTON MD 03/21/18 Consult to Physician [CONS] Routine Comment: Consulting Provider: APOLLO VALLADARES Physician Instructions: Reason For Exam: preoperative evaluation 03/22/18 18:37 Consult to Case Management [CONS] Routine Services Needed at Discharge: [facility] [employer] Other Notified:: REPORTING DEVELOPER Additional Physician Instructions: pt will need rehab or snf 03/22/18 18:40 Physical Therapy Evaluation and Treat [CONS] Routine Comment: pendulum exercises left shoulder Reason For Exam: postop evaluation Weight bearing status?: Full wt bearing Assistive devices?: Yes If so list: Walker 03/23/18 13:20 Consult Acute Rehabilitation [CONS] Routine Consulting Provider: VENANCIO BEGUM III Reason For Exam: rehab for shoulder surgery 03/25/18 10:04 Occupational Therapy Evaluate and Treat [CONS] Routine Comment: Reason For Exam: Fx left humerus Primary care physician: MATTHEW HOLDEN Hospitalization Reason for admission: displaced left proximal humerus fracture Condition: Stable Procedures: Closed reduction and insertion of intramedullary nail left humerus Hospital course: 67 year old female who fell down accidentally with pain and difficulty moving her left upper extremity. there is no history of chest pain, shortness of breath ,fever or chills. patient also has no history of nausea and vomiting. On admission patient was noted with fracture of the left humerus and underwent closed reduction and insertion of nail of left humerus. she had some pain issues and with limited mobility on the left upper ext was recommended for SNF or inpatient Rehab. she is clinically stable for discharge. She was also treated for acute cystitis Extensive counselling was provided on weight management. Recommended outpatient pulmonary eval for Sleep apnea. Disposition: [id number] HOME [facility] Core Measure Documentation - Palliative Care Palliative Care/ Comfort Measures: Not Applicable - Core Measures Any of the following diagnoses?: none - VTE Discharge Requirements Deep Vein Thrombosis/Pulmonary Embolism Present on Admission: No Has pt received <5 days of overlap therapy or INR<2.0: Yes Anticoagulant overlap therapy prescribed at discharge: Yes - Acute NH Discharge Requirements Aspirin at discharge: No Reason for no aspirin on DC: Medical contraindication - Heart Failure Discharge Requirements ISATU/ARB for LVSD if EF <40%: No Reason for no ISATU/ARB: Medical contraindication - Stroke Discharge Requirements Statin for LDL = or >70 mg/dl on DC: Yes Exam - Physical Exam Narrative exam: On physical examination significant musculoskeletal findings related to the left upper extremity. She is noted to have swelling deformity there was tenderness on palpation at the proximal humerus distal neurovascular status is intact she had good capillary refill distally - Constitutional Vitals: Temp Pulse Resp BP Pulse Ox 98.1 F 88 18 139/63 97 03/29/18 19:46 03/29/18 19:46 03/29/18 19:46 03/29/18 19:46 03/29/18 19:46 General appearance: Present: no acute distress, well-nourished - EENT Eyes: Present: PERRL ENT: hearing intact, clear oral mucosa - Neck Neck: Present: supple, normal ROM - Respiratory Respiratory effort: normal Respiratory: bilateral: CTA - Cardiovascular Heart Sounds: Present: S1 & S2. Absent: rub, click - Extremities Extremities: pulses symmetrical, No edema Peripheral Pulses: within normal limits - Abdominal General gastrointestinal: Present: soft, non-tender, non-distended, normal bowel sounds Female genitourinary: Present: normal - Integumentary Integumentary: Present: clear, warm, dry - Musculoskeletal Musculoskeletal: gait normal, strength equal bilaterally - Psychiatric Psychiatric: appropriate mood/affect, intact judgment & insight - Neurologic Neurologic: CNII-XII intact, moves all extremities Plan Activity: advance as tolerated Weight Bearing Status: Weight Bear as Tolerated Diet: low fat, low cholesterol, diabetic Follow up with: TISHA LANZA MD [Staff Physician] - 7 Days MATTHEW HOLDEN MD [Primary Care Provider] - 7 Days Prescriptions: HYDROcodone/ACETAMINOPHEN [Hydrocodone-Acetamin 10-325 mg] 1 each PO Q8H PRN #14 tablet PRN Reason: Pain , Severe (7-10) oxyCODONE [roxiCODONE] 5 mg PO Q6HR PRN #30 tablet PRN Reason: Pain
== END 2018-03-29 21:17 | disposition home health service (06) | DRG 493 ==
LOC: 3B-SURG 15:41 → EDSTATUS 03-22 13:00
PROVIDERS: ADMIT Orthopaedic Surgery; ATTEND Orthopaedic Surgery
PROC: 0PSD06Z Reposition Left Humeral Head with Intramedullary Internal Fixation Device, Open Approach (ICD-10-PCS; principal; 2018-03-22)
PROC: 3E0T3BZ Introduction of Anesthetic Agent into Peripheral Nerves and Plexi, Percutaneous Approach (ICD-10-PCS; 2018-03-22)
DX: S42.202A Unspecified fracture of upper end of left humerus, initial encounter for closed fracture (principal); Z68.42 Body mass index [BMI] 45.0-49.9, adult; N30.00 Acute cystitis without hematuria; I50.30 Unspecified diastolic (congestive) heart failure; E66.01 Morbid (severe) obesity due to excess calories; J45.909 Unspecified asthma, uncomplicated; I11.0 Hypertensive heart disease with heart failure; H40.9 Unspecified glaucoma; E11.51 Type 2 diabetes mellitus with diabetic peripheral angiopathy without gangrene; E78.5 Hyperlipidemia, unspecified; G47.30 Sleep apnea, unspecified; W18.30XA Fall on same level, unspecified, initial encounter; Y93.89 Activity, other specified; Y92.89 Other specified places as the place of occurrence of the external cause; Y99.8 Other external cause status; Z86.73 Personal history of transient ischemic attack (TIA), and cerebral infarction without residual deficits; Z88.0 Allergy status to penicillin; Z88.8 Allergy status to other drugs, medicaments and biological substances; Z71.3 Dietary counseling and surveillance
CPT/HCPCS: 36415; 71045; 80048; 81001; 82962; 85027; 93005; 93010; 93306; 94760; 96372; 99283; G0378; A9270-GY; C1713; C1769; J0330; J1170; J1650; J1815; J2270; J2405; J2704; J2710; J2765; J3010; J3370; J7030; J7040; Q0162

== ENCOUNTER 2018-05-04 13:57 | Outpatient (CLI) | payer MEDICARE ==
--- NOTE | 2018-05-04 16:14 | XRay Report ---
XRAY LEFT HUMERUS TWO VIEWS: 05/04/18 14:10:00 CLINICAL: Followup fracture. COMPARISON: 03/26/18 FINDINGS: An intramedullary conchita traverses a comminuted fracture of the proximal humerus. Abundant callous has developed and fracture lines are indistinct compared to the last exam. Normal alignment at the shoulder and elbow. Soft tissues are normal. IMPRESSION: Healing comminuted fracture of the proximal humerus.
== END 2018-05-04 13:58 | disposition home or self-care (01) ==
LOC: XRAY 13:57
PROVIDERS: ATTEND Orthopaedic Surgery
DX: S42.202D Unspecified fracture of upper end of left humerus, subsequent encounter for fracture with routine healing (principal); E11.9 Type 2 diabetes mellitus without complications; E66.01 Morbid (severe) obesity due to excess calories; E78.5 Hyperlipidemia, unspecified; I11.0 Hypertensive heart disease with heart failure; I50.9 Heart failure, unspecified; E78.00 Pure hypercholesterolemia, unspecified; J44.9 Chronic obstructive pulmonary disease, unspecified; K21.9 Gastro-esophageal reflux disease without esophagitis; M19.90 Unspecified osteoarthritis, unspecified site; Z90.49 Acquired absence of other specified parts of digestive tract; Z90.710 Acquired absence of both cervix and uterus; Z90.89 Acquired absence of other organs; X58.XXXD Exposure to other specified factors, subsequent encounter

== ENCOUNTER 2019-03-12 17:48 | Emergency (ER) | payer MEDICARE ==
--- NOTE | 2019-03-12 20:10 | Event Note ---
ED Screening Note ED Screening Note: states she has a DVT in the right leg, has the disc with her states that her PCP ordered the test right leg swelling and pain three days ago PMHx PVD, HTN, DM, CHF, asthma, glaucoma, urinary incontinence, GERD hx of DVT in 2000 not on any blood thinners allergy: PCN, NSAIDs, demerol non smoker non drinker This initial assessment/diagnostic orders/clinical plan/treatment(s) is/are subject to change based on patients health status, clinical progression and re- assessment by fellow clinical providers in the ED. Further treatment and workup at subsequent clinical providers discretion. Patient/guardian urged not to elope from the ED as their condition may be serious if not clinically assessed and managed. Initial orders include: labs
[2019-03-12 21:57] LABS: Basophils % (Auto) 0.6 % (0.0-1.8); Eosinophils # (Auto) 0.2 K/mm3 (0.0-0.4); Eosinophils % (Auto) 1.9 % (0.0-4.3); Hematocrit 40.5 % (30.3-42.9); Hemoglobin 13.3 gm/dl (10.1-14.3); Lymphocytes # (Auto) 1.7 K/mm3 (1.2-5.4); Lymphocytes % (Auto) 21.4 % (13.4-35.0); Mean Corpuscular HGB Conc 33 % (30-34); Mean Corpuscular Volume 92 fl (79-97); Monocytes # (Auto) 0.8 K/mm3 (0.0-0.8); Monocytes % (Auto) 9.5 % (0.0-7.3); Platelet Count 205 K/mm3 (140-440); Red Blood Count 4.43 M/mm3 (3.65-5.03); Red Cell Distribution Width 14.1 % (13.2-15.2)
[2019-03-12 22:07] LABS: INR 1.08 (0.87-1.13)
[2019-03-12 22:08] LABS: Partial Thromboplastin Time 24.5 Sec. (24.2-36.6)
[2019-03-12 22:35] LABS: Alanine Aminotransferase 9 units/L (7-56); Albumin 3.7 g/dL (3.9-5); BUN/Creatinine Ratio 35; Blood Urea Nitrogen 21 mg/dL (7-17); Calcium 9.6 mg/dL (8.4-10.2); Hemolysis Index 16
--- NOTE | 2019-03-12 23:18 | Emergency Department Report ---
ED General Adult HPI - General Chief complaint: Medical Clearance Stated complaint: RT LEG POSSIBLE BLOOD CLOT Time Seen by Provider: 03/12/19 20:06 Source: patient Mode of arrival: Ambulatory Limitations: No Limitations - History of Present Illness Initial comments: 68 y.o. female with history of DVT in right leg in 2001 and currently not on any anticoagulation presents after being sent by her primary care doctor for blood clot in the right leg. Patient states that she saw her sister's primary care physician because she had been having pain in her right lower extremity since Monday. Patietn currently denies any chest pain or shortness of breath. Patient denies any trauma to her extremity. Patient denies any fever. - Related Data Home Medications Medication Instructions Recorded Confirmed Last Taken Liraglutide [Victoza 2-Shiva] 1.8 mg IM QHS 04/04/13 03/22/18 03/20/18 buPROPion [Wellbutrin] 100 mg PO HS 04/04/13 03/22/18 03/21/18 100 MG Ipratropium/Albuterol Sulfate 2 inh INHALATION PRN PRN 04/12/13 03/22/18 03/07/18 [Combivent Respimat] Bimatoprost [Lumigan 0.01%] 1 drop OU QHS 03/22/18 03/22/18 03/21/18 Omeprazole [PriLOSEC] 40 mg PO HS 03/22/18 03/22/18 03/21/18 Oxybutynin Chloride [Ditropan Xl] 10 mg PO QHS 03/22/18 03/22/18 03/21/18 Tramadol HCl [Ultram] 75 mg PO PRN PRN 03/22/18 03/22/18 12/28/17 metFORMIN [Glucophage] 500 mg PO BID 03/22/18 03/22/18 03/21/18 traZODone [Desyrel] 75 mg PO HS 03/22/18 03/22/18 03/19/18 Paxil 60 mg PO DAILY 03/23/18 03/23/18 Unknown Previous Rx's Medication Instructions Recorded Last Taken Type Fenofibrate [Lofibra] 160 mg PO DAILY #30 tablet 04/15/13 03/21/18 Rx Furosemide [Lasix] 20 mg PO DAILY #30 tablet 04/15/13 03/19/18 Rx Montelukast [Singulair] 10 mg PO QPM #30 tablet 04/15/13 03/21/18 Rx PARoxetine [Paxil] 3 tab PO QDAY #30 tablet 04/15/13 03/21/18 Rx Pravastatin [Pravachol] 40 mg PO QDAY #30 tablet 04/15/13 03/21/18 Rx Spironolactone 25 mg PO BID #60 tablet 04/15/13 03/21/18 Rx buPROPion SR [Wellbutrin SR] 150 mg PO QDAY #30 tablet 04/15/13 03/21/18 Rx carvediloL [Coreg] 12.5 mg PO BID #60 tablet 04/15/13 03/21/18 Rx glipiZIDE [Glucotrol] 10 mg PO BID #60 tablet 04/15/13 03/21/18 Rx Cyclobenzaprine [Flexeril 10 MG 10 mg PO TID PRN #14 tablet 03/18/18 03/21/18 Rx TAB] oxyCODONE /ACETAMINOPHEN [Percocet 1 - 2 tab PO Q6HR PRN #30 tablet 03/18/18 03/21/18 Rx 5/325 mg] 20 mg HYDROcodone/ACETAMINOPHEN 1 each PO Q8H PRN #14 tablet 03/26/18 Unknown Rx [Hydrocodone-Acetamin 10-325 mg] oxyCODONE [roxiCODONE] 5 mg PO Q6HR PRN #30 tablet 03/29/18 Unknown Rx Apixaban [Eliquis] 5 mg PO BID #76 tablet 03/13/19 Unknown Rx Apixaban [Eliquis] 5 mg PO DAILY 30 Days #76 tablet 03/13/19 Unknown Rx traMADoL [Ultram] 50 mg PO Q6HR PRN #20 tablet 03/13/19 Unknown Rx Allergies Allergy/AdvReac Type Severity Reaction Status Date / Time meperidine HCl [From Demerol] Allergy Rash Verified 04/04/13 16:22 NSAIDS (Non-Steroidal Allergy Rash Verified 04/04/13 16:22 Anti-Inflamma Penicillins Allergy Rash Verified 04/04/13 16:22 ED Review of Systems ROS: Stated complaint: RT LEG POSSIBLE BLOOD CLOT Other details as noted in HPI Constitutional: denies: chills, fever Eyes: denies: eye pain, eye discharge, vision change ENT: denies: ear pain, throat pain Respiratory: denies: cough, shortness of breath, wheezing Cardiovascular: denies: chest pain, palpitations Endocrine: no symptoms reported Gastrointestinal: denies: abdominal pain, nausea, diarrhea Genitourinary: denies: urgency, dysuria, discharge Musculoskeletal: other (lower extremity swelling) Skin: denies: rash, lesions Neurological: denies: headache, weakness, paresthesias Psychiatric: denies: anxiety, depression Hematological/Lymphatic: denies: easy bleeding, easy bruising ED Past Medical Hx - Past Medical History Hx Hypertension: Yes (H/O CHF) Hx Heart Attack/AMI: No Hx Congestive Heart Failure: Yes Hx Diabetes: Yes Hx Deep Vein Thrombosis: Yes (right leg) Hx Pulmonary Embolism: No Hx GERD: Yes Hx Renal Disease: Yes Hx Sickle Cell Disease: No Hx Arthritis: Yes Hx Headaches / Migraines: No Hx Seizures: No Hx Kidney Stones: No Hx Asthma: Yes (rare inhaler use, presently breathing at her baseline.) Hx COPD: Yes Hx Tuberculosis: No Hx Dementia: No Hx HIV: No Additional medical history: high chol, venous insufficiency - Surgical History Hx Coronary Stent: No Hx Open Heart Surgery: No Hx Pacemaker: No Hx Internal Defibrillator: No Hx Cholecystectomy: Yes Hx Appendectomy: Yes Hx Breast Surgery: No Additional Surgical History: Hysterectomy, T&A, Bilat knee surg, finger surg, Basal cell CA removed from neck - Social History Smoking Status: Never Smoker Substance Use Type: None - Medications Home Medications: Home Medications Medication Instructions Recorded Confirmed Last Taken Type Liraglutide [Victoza 2-Shiva] 1.8 mg IM QHS 04/04/13 03/22/18 03/20/18 History buPROPion [Wellbutrin] 100 mg PO HS 04/04/13 03/22/18 03/21/18 History 100 MG Ipratropium/Albuterol Sulfate 2 inh INHALATION PRN PRN 04/12/13 03/22/18 03/07/18 History [Combivent Respimat] Fenofibrate [Lofibra] 160 mg PO DAILY #30 tablet 04/15/13 03/22/18 03/21/18 Rx Furosemide [Lasix] 20 mg PO DAILY #30 tablet 04/15/13 03/22/18 03/19/18 Rx Montelukast [Singulair] 10 mg PO QPM #30 tablet 04/15/13 03/22/18 03/21/18 Rx PARoxetine [Paxil] 3 tab PO QDAY #30 tablet 04/15/13 03/22/18 03/21/18 Rx Pravastatin [Pravachol] 40 mg PO QDAY #30 tablet 04/15/13 03/22/18 03/21/18 Rx Spironolactone 25 mg PO BID #60 tablet 04/15/13 03/22/18 03/21/18 Rx buPROPion SR [Wellbutrin SR] 150 mg PO QDAY #30 tablet 04/15/13 03/22/18 03/21/18 Rx carvediloL [Coreg] 12.5 mg PO BID #60 tablet 04/15/13 03/22/18 03/21/18 Rx glipiZIDE [Glucotrol] 10 mg PO BID #60 tablet 04/15/13 03/22/18 03/21/18 Rx Cyclobenzaprine [Flexeril 10 MG 10 mg PO TID PRN #14 tablet 03/18/18 03/22/18 03/21/18 Rx TAB] oxyCODONE /ACETAMINOPHEN [Percocet 1 - 2 tab PO Q6HR PRN #30 tablet 03/18/18 03/22/18 03/21/18 Rx 5/325 mg] 20 mg Bimatoprost [Lumigan 0.01%] 1 drop OU QHS 03/22/18 03/22/18 03/21/18 History Omeprazole [PriLOSEC] 40 mg PO HS 03/22/18 03/22/18 03/21/18 History Oxybutynin Chloride [Ditropan Xl] 10 mg PO QHS 03/22/18 03/22/18 03/21/18 History Tramadol HCl [Ultram] 75 mg PO PRN PRN 03/22/18 03/22/18 12/28/17 History metFORMIN [Glucophage] 500 mg PO BID 03/22/18 03/22/18 03/21/18 History traZODone [Desyrel] 75 mg PO HS 03/22/18 03/22/18 03/19/18 History Paxil 60 mg PO DAILY 03/23/18 03/23/18 Unknown History HYDROcodone/ACETAMINOPHEN 1 each PO Q8H PRN #14 tablet 03/26/18 Unknown Rx [Hydrocodone-Acetamin 10-325 mg] oxyCODONE [roxiCODONE] 5 mg PO Q6HR PRN #30 tablet 03/29/18 Unknown Rx Apixaban [Eliquis] 5 mg PO BID #76 tablet 03/13/19 Unknown Rx Apixaban [Eliquis] 5 mg PO DAILY 30 Days #76 tablet 03/13/19 Unknown Rx traMADoL [Ultram] 50 mg PO Q6HR PRN #20 tablet 03/13/19 Unknown Rx ED Physical Exam - General Limitations: No Limitations General appearance: alert, in no apparent distress - Head Head exam: Present: atraumatic, normocephalic - Eye Eye exam: Present: normal appearance - ENT ENT exam: Present: mucous membranes moist - Neck Neck exam: Present: normal inspection - Respiratory Respiratory exam: Present: normal lung sounds bilaterally. Absent: respiratory distress - Cardiovascular Cardiovascular Exam: Present: regular rate, normal rhythm. Absent: systolic murmur, diastolic murmur, rubs, gallop - GI/Abdominal GI/Abdominal exam: Present: soft, normal bowel sounds - Extremities Exam Extremities exam: Present: other (vascular stasis changes noted in bilateral lower extremities; Patient has positive Homans sign present in right lower extremity) - Back Exam Back exam: Present: normal inspection - Neurological Exam Neurological exam: Present: alert, oriented X3 - Psychiatric Psychiatric exam: Present: normal affect, normal mood - Skin Skin exam: Present: warm, dry, intact, normal color. Absent: rash ED Course Vital Signs 03/12/19 03/12/19 03/12/19 17:55 20:34 21:00 Temperature 98.3 F Pulse Rate 81 86 87 Respiratory 19 14 19 Rate Blood Pressure 135/59 138/41 138/41 O2 Sat by Pulse 93 93 93 Oximetry 03/12/19 03/12/19 03/12/19 21:30 21:50 21:57 Temperature Pulse Rate 83 80 Respiratory 13 18 16 Rate Blood Pressure 134/42 134/42 O2 Sat by Pulse 94 97 93 Oximetry 03/12/19 03/12/19 03/12/19 22:01 22:31 23:01 Temperature Pulse Rate 76 80 78 Respiratory 16 22 20 Rate Blood Pressure 134/42 150/49 150/49 O2 Sat by Pulse 94 92 92 Oximetry ED Medical Decision Making - Lab Data Result diagrams: 03/12/19 21:46 03/12/19 21:46 - Medical Decision Making 68 y.o. female sent to ER for evaluation of DVT. Patient to be treated with juany fu as an outpatient. Patient to follow up with PCP as an outpatient. - Differential Diagnosis DVT; Ruptured Nava's Cyst; Critical care attestation.: If time is entered above; I have spent that time in minutes in the direct care of this critically ill patient, excluding procedure time. ED Disposition Clinical Impression: DVT (deep venous thrombosis) Disposition: TO HOME OR SELFCARE Is pt being admited?: No Condition: Stable Prescriptions: Apixaban [Eliquis] 5 mg PO DAILY 30 Days #76 tablet Apixaban [Eliquis] 5 mg PO BID #76 tablet traMADoL [Ultram] 50 mg PO Q6HR PRN #20 tablet PRN Reason: Pain Referrals: PRIMARY CARE, [Primary Care Provider] - 3-5 Days MATTHEW HOLDEN MD [Staff Physician] - 3-5 Days Time of Disposition: 00:09 Print Language: EAST TIMOR[place]
--- NOTE | 2019-03-13 01:01 | Vascular Lab Report ---
DUPLEX DOPPLER LOWER EXTREMITY VEINS, RIGHT INDICATION: Right lower extremity pain.. TECHNIQUE: Duplex doppler imaging was performed through the veins of the right lower extremity using venous comp ression and other maneuvers. COMPARISON: None available. FINDINGS: Common femoral vein: Negative. Superficial femoral vein: Negative. Popliteal vein: Negative. Calf veins: Negative. Additional findings: There is extensive near occlusive thrombus in the right greater saphenous vein f rom its junction with the common femoral vein distally to the level of the midcalf. IMPRESSION: Extensive near occlusive venous thrombosis involving the right greater saphenous vein (harrison perficial thrombophlebitis. Signer Name: Eric Connelly MD Signed: 03/13/2019 12:56 AM Workstation Name: [id number]
[2019-03-13 01:10] VITALS: BP 150/49
== END 2019-03-13 01:11 | disposition home or self-care (01) ==
LOC: ED 17:48
DX: I82.401 Acute embolism and thrombosis of unspecified deep veins of right lower extremity (principal); I11.0 Hypertensive heart disease with heart failure; I50.9 Heart failure, unspecified; E11.9 Type 2 diabetes mellitus without complications; K21.9 Gastro-esophageal reflux disease without esophagitis; M19.90 Unspecified osteoarthritis, unspecified site; J44.9 Chronic obstructive pulmonary disease, unspecified; E78.00 Pure hypercholesterolemia, unspecified; Z90.710 Acquired absence of both cervix and uterus; Z79.899 Other long term (current) drug therapy; Z88.6 Allergy status to analgesic agent; Z88.8 Allergy status to other drugs, medicaments and biological substances; Z88.1 Allergy status to other antibiotic agents; Z88.0 Allergy status to penicillin
CPT/HCPCS: 36415; 80053; 85025; 85610; 85730

== ENCOUNTER 2021-09-13 15:52 | Emergency (ER) | payer MEDICARE ==
--- NOTE | 2021-09-13 16:56 | XRay Report ---
CHEST 1 VIEW 09/13/2021 4:38 PM INDICATION / CLINICAL INFORMATION: chest pain. COMPARISON: None available. FINDINGS: SUPPORT DEVICES: None. HEART / MEDIASTINUM: No significant abnormality. LUNGS / PLEURA: No significant pulmonary or pleural abnormality. No pneumothorax. ADDITIONAL FINDINGS: No significant additional findings. IMPRESSION: 1. No acute findings. Signer Name: Anjel Arredondo MD Signed: 09/13/2021 4:51 PM Workstation Name: [id number]
--- NOTE | 2021-09-13 17:09 | Emergency Department Report ---
ED General Adult HPI - General Chief complaint: Chest Pain Stated complaint: CHEST PAIN/WAS SENT TO THE ER BY DR CARROLL?: No Time Seen by Provider: 09/13/21 16:50 Source: patient Mode of arrival: Ambulatory Limitations: No Limitations - History of Present Illness Initial comments: 70-year-old female with medical history of congestive heart failure hypertension diabetes came to the emergency room today with concerns of short of breath and also left-sided chest pain that started this morning at 4:00. According patient his chest pain is more of a sharp sensation localized nonradiating. Patient denies anything makes it worse anything makes it better. Patient denies any other associate symptoms. Patient denies fever chill night sweat dizziness blurred vision lightheadedness headache tinnitus ear pain runny nose sore throat loss of taste loss of smell palpitation cough abdominal pain nausea vomiting diarrhea constipation joint pain muscle pain new rash and heat or cold intolerance. Patient denies using oxygen at home. - Related Data Home Medications Medication Instructions Recorded Confirmed Last Taken Liraglutide [Victoza 2-Shiva] 1.8 mg IM QHS 04/04/13 03/22/18 03/20/18 buPROPion [Wellbutrin] 100 mg PO HS 04/04/13 03/22/18 03/21/18 100 MG Ipratropium/Albuterol Sulfate 2 inh INHALATION PRN PRN 04/12/13 03/22/18 03/07/18 [Combivent Respimat] Bimatoprost [Lumigan 0.01%] 1 drop OU QHS 03/22/18 03/22/18 03/21/18 Omeprazole [PriLOSEC] 40 mg PO HS 03/22/18 03/22/18 03/21/18 Oxybutynin Chloride [Ditropan Xl] 10 mg PO QHS 03/22/18 03/22/18 03/21/18 Tramadol HCl [Ultram] 75 mg PO PRN PRN 03/22/18 03/22/18 12/28/17 metFORMIN [Glucophage] 500 mg PO BID 03/22/18 03/22/18 03/21/18 traZODone [Desyrel] 75 mg PO HS 03/22/18 03/22/18 03/19/18 Paxil 60 mg PO DAILY 03/23/18 03/23/18 Unknown Previous Rx's Medication Instructions Recorded Last Taken Type Fenofibrate [Lofibra] 160 mg PO DAILY #30 tablet 04/15/13 03/21/18 Rx Furosemide [Lasix] 20 mg PO DAILY #30 tablet 04/15/13 03/19/18 Rx Montelukast [Singulair] 10 mg PO QPM #30 tablet 04/15/13 03/21/18 Rx PARoxetine [Paxil] 3 tab PO QDAY #30 tablet 04/15/13 03/21/18 Rx Pravastatin [Pravachol] 40 mg PO QDAY #30 tablet 04/15/13 03/21/18 Rx Spironolactone 25 mg PO BID #60 tablet 04/15/13 03/21/18 Rx buPROPion SR [Wellbutrin SR] 150 mg PO QDAY #30 tablet 04/15/13 03/21/18 Rx carvediloL [Coreg] 12.5 mg PO BID #60 tablet 04/15/13 03/21/18 Rx glipiZIDE [Glucotrol] 10 mg PO BID #60 tablet 04/15/13 03/21/18 Rx Cyclobenzaprine [Flexeril 10 MG 10 mg PO TID PRN #14 tablet 03/18/18 03/21/18 Rx TAB] oxyCODONE /ACETAMINOPHEN [Percocet 1 - 2 tab PO Q6HR PRN #30 tablet 03/18/18 03/21/18 Rx 5/325 mg] 20 mg HYDROcodone/ACETAMINOPHEN 1 each PO Q8H PRN #14 tablet 03/26/18 Unknown Rx [Hydrocodone-Acetamin 10-325 mg] oxyCODONE [roxiCODONE] 5 mg PO Q6HR PRN #30 tablet 03/29/18 Unknown Rx Apixaban [Eliquis] 5 mg PO BID #76 tablet 03/13/19 Unknown Rx Apixaban [Eliquis] 5 mg PO DAILY 30 Days #76 tablet 03/13/19 Unknown Rx traMADoL [Ultram] 50 mg PO Q6HR PRN #20 tablet 03/13/19 Unknown Rx Allergies Allergy/AdvReac Type Severity Reaction Status Date / Time meperidine HCl [From Demerol] Allergy Rash Verified 04/04/13 16:22 NSAIDS (Non-Steroidal Allergy Rash Verified 04/04/13 16:22 Anti-Inflamma Penicillins Allergy Rash Verified 04/04/13 16:22 ED Review of Systems ROS: Stated complaint: CHEST PAIN/WAS SENT TO THE ER BY Other details as noted in HPI Comment: All other systems reviewed and negative Constitutional: no symptoms reported, see HPI Eyes: as per HPI ENT: as per HPI Respiratory: see HPI, shortness of breath Cardiovascular: chest pain. denies: palpitations, dyspnea on exertion, orthopnea, edema, syncope, paroxysmal nocturnal dyspnea Endocrine: no symptoms reported, see HPI Gastrointestinal: as per HPI Genitourinary: as per HPI Musculoskeletal: as per HPI Skin: as per HPI Neurological: as per HPI Psychiatric: as per HPI Hematological/Lymphatic: as per HPI ED Past Medical Hx - Past Medical History Hx Hypertension: Yes (H/O CHF) Hx Heart Attack/AMI: No Hx Congestive Heart Failure: Yes Hx Diabetes: Yes Hx Deep Vein Thrombosis: Yes (right leg) Hx Pulmonary Embolism: No Hx GERD: Yes Hx Renal Disease: Yes Hx Sickle Cell Disease: No Hx Arthritis: Yes Hx Headaches / Migraines: No Hx Seizures: No Hx Kidney Stones: No Hx Asthma: Yes (rare inhaler use, presently breathing at her baseline.) Hx COPD: Yes Hx Tuberculosis: No Hx Dementia: No Hx HIV: No Additional medical history: high chol, venous insufficiency - Surgical History Hx Coronary Stent: No Hx Open Heart Surgery: No Hx Pacemaker: No Hx Internal Defibrillator: No Hx Cholecystectomy: Yes Hx Appendectomy: Yes Hx Breast Surgery: No Additional Surgical History: Hysterectomy, T&A, Bilat knee surg, finger surg, Basal cell CA removed from neck - Social History Smoking Status: Never Smoker - Medications Home Medications: Home Medications Medication Instructions Recorded Confirmed Last Taken Type Liraglutide [Victoza 2-Shiva] 1.8 mg IM QHS 04/04/13 03/22/18 03/20/18 History buPROPion [Wellbutrin] 100 mg PO HS 04/04/13 03/22/18 03/21/18 History 100 MG Ipratropium/Albuterol Sulfate 2 inh INHALATION PRN PRN 04/12/13 03/22/18 03/07/18 History [Combivent Respimat] Fenofibrate [Lofibra] 160 mg PO DAILY #30 tablet 04/15/13 03/22/18 03/21/18 Rx Furosemide [Lasix] 20 mg PO DAILY #30 tablet 04/15/13 03/22/18 03/19/18 Rx Montelukast [Singulair] 10 mg PO QPM #30 tablet 04/15/13 03/22/18 03/21/18 Rx PARoxetine [Paxil] 3 tab PO QDAY #30 tablet 04/15/13 03/22/18 03/21/18 Rx Pravastatin [Pravachol] 40 mg PO QDAY #30 tablet 04/15/13 03/22/18 03/21/18 Rx Spironolactone 25 mg PO BID #60 tablet 04/15/13 03/22/18 03/21/18 Rx buPROPion SR [Wellbutrin SR] 150 mg PO QDAY #30 tablet 04/15/13 03/22/18 03/21/18 Rx carvediloL [Coreg] 12.5 mg PO BID #60 tablet 04/15/13 03/22/18 03/21/18 Rx glipiZIDE [Glucotrol] 10 mg PO BID #60 tablet 04/15/13 03/22/18 03/21/18 Rx Cyclobenzaprine [Flexeril 10 MG 10 mg PO TID PRN #14 tablet 03/18/18 03/22/18 03/21/18 Rx TAB] oxyCODONE /ACETAMINOPHEN [Percocet 1 - 2 tab PO Q6HR PRN #30 tablet 03/18/18 03/22/18 03/21/18 Rx 5/325 mg] 20 mg Bimatoprost [Lumigan 0.01%] 1 drop OU QHS 03/22/18 03/22/18 03/21/18 History Omeprazole [PriLOSEC] 40 mg PO HS 03/22/18 03/22/18 03/21/18 History Oxybutynin Chloride [Ditropan Xl] 10 mg PO QHS 03/22/18 03/22/18 03/21/18 History Tramadol HCl [Ultram] 75 mg PO PRN PRN 03/22/18 03/22/18 12/28/17 History metFORMIN [Glucophage] 500 mg PO BID 03/22/18 03/22/18 03/21/18 History traZODone [Desyrel] 75 mg PO HS 03/22/18 03/22/18 03/19/18 History Paxil 60 mg PO DAILY 03/23/18 03/23/18 Unknown History HYDROcodone/ACETAMINOPHEN 1 each PO Q8H PRN #14 tablet 03/26/18 Unknown Rx [Hydrocodone-Acetamin 10-325 mg] oxyCODONE [roxiCODONE] 5 mg PO Q6HR PRN #30 tablet 03/29/18 Unknown Rx Apixaban [Eliquis] 5 mg PO BID #76 tablet 03/13/19 Unknown Rx Apixaban [Eliquis] 5 mg PO DAILY 30 Days #76 tablet 03/13/19 Unknown Rx traMADoL [Ultram] 50 mg PO Q6HR PRN #20 tablet 03/13/19 Unknown Rx ED Physical Exam - General Limitations: No Limitations General appearance: alert - Head Head exam: Present: atraumatic, normocephalic, normal inspection - Eye Eye exam: Present: normal appearance, PERRL, EOMI Pupils: Present: normal accommodation - ENT ENT exam: Present: normal exam, mucous membranes moist - Neck Neck exam: Present: normal inspection, full ROM - Respiratory Respiratory exam: Present: normal lung sounds bilaterally - Cardiovascular Cardiovascular Exam: Present: regular rate, normal rhythm - GI/Abdominal GI/Abdominal exam: Present: soft - Extremities Exam Extremities exam: Present: normal inspection, full ROM, normal capillary refill - Back Exam Back exam: Present: normal inspection, full ROM - Neurological Exam Neurological exam: Present: alert, oriented X3, CN II-XII intact - Psychiatric Psychiatric exam: Present: normal affect, normal mood - Skin Skin exam: Present: normal color ED Course Vital Signs 09/13/21 09/13/21 09/13/21 16:23 17:52 18:41 Temperature 98.9 F Pulse Rate 67 65 64 Respiratory 25 H 15 20 Rate Blood Pressure 131/70 Blood Pressure 123/49 113/35 [Left] O2 Sat by Pulse 91 98 99 Oximetry 09/13/21 09/13/21 09/13/21 19:28 19:31 19:45 Temperature Pulse Rate 67 66 Respiratory 14 16 Rate Blood Pressure 125/42 125/42 Blood Pressure [Left] O2 Sat by Pulse 83 L 79 L 93 Oximetry 09/13/21 09/13/21 09/13/21 20:01 20:15 20:31 Temperature Pulse Rate 65 67 65 Respiratory 17 12 10 L Rate Blood Pressure 147/54 147/54 132/51 Blood Pressure [Left] O2 Sat by Pulse 92 91 91 Oximetry 09/13/21 09/13/21 09/13/21 20:45 21:01 21:15 Temperature Pulse Rate 65 72 67 Respiratory 13 12 19 Rate Blood Pressure 132/51 127/32 127/32 Blood Pressure [Left] O2 Sat by Pulse 98 99 100 Oximetry 09/13/21 09/13/21 09/13/21 21:31 21:45 22:01 Temperature Pulse Rate 71 67 67 Respiratory 16 15 15 Rate Blood Pressure 127/42 127/42 133/42 Blood Pressure [Left] O2 Sat by Pulse 98 99 99 Oximetry 09/13/21 09/13/21 09/13/21 22:15 22:31 22:45 Temperature Pulse Rate 68 74 67 Respiratory 15 25 H 12 Rate Blood Pressure 133/42 121/38 121/38 Blood Pressure [Left] O2 Sat by Pulse 99 98 100 Oximetry - Reevaluation(s) Reevaluation #1: 09/13/21 23:28 Heart score of 3 with troponin of 5 hours apart unremarkable. Patient present with noncardiac chest pain we will going discharge patient make a follow-up appoint with primary care provider to be seen within 3 to 5 days. ED Medical Decision Making - Lab Data Result diagrams: 09/13/21 17:38 09/13/21 17:38 Critical care attestation.: If time is entered above; I have spent that time in minutes in the direct care of this critically ill patient, excluding procedure time. ED Disposition Clinical Impression: Non-cardiac chest pain Disposition: 01 HOME / SELF CARE / HOMELESS Is pt being admited?: No Does the pt Need Aspirin: No Condition: Stable Instructions: Nonspecific Chest Pain, Adult Additional Instructions: Your work-up in the emergency room was unremarkable; make a follow-up appointment with your primary care provider to be seen within 3 to 5 days for further outpatient evaluation. Referrals: MATTHEW HOLDEN MD [Primary Care Provider] - 3-5 Days Time of Disposition: 23:26
[2021-09-13 17:59] LABS: Basophils % (Auto) 0.5 % (0.0-1.8); Eosinophils # (Auto) 0.2 K/mm3 (0.0-0.4); Hematocrit 42.4 % (30.3-42.9); Lymphocytes # (Auto) 1.7 K/mm3 (1.2-5.4); Lymphocytes % (Auto) 22.7 % (13.4-35.0); Mean Corpuscular HGB Conc 33 % (30-34); Mean Corpuscular Volume 93 fl (79-97); Monocytes # (Auto) 0.7 K/mm3 (0.0-0.8); Monocytes % (Auto) 8.9 % (0.0-7.3); Platelet Count 226 K/mm3 (140-440); Red Blood Count 4.57 M/mm3 (3.65-5.03); Red Cell Distribution Width 14.9 % (13.2-15.2)
[2021-09-13 18:27] LABS: Alanine Aminotransferase 12 units/L (7-56); Albumin 4.4 g/dL (3.9-5); Blood Urea Nitrogen 29 mg/dL (7-17); Hemolysis Index 56
[2021-09-13 18:38] LABS: BUN/Creatinine Ratio 41
[2021-09-13 23:49] VITALS: BP 121/41
--- NOTE | 2021-09-14 18:54 | Electrocardiograph Report ---
[facility] Test Date: 2021-09-13 Test Time: 16:12:42 Pat Name: ELLIOT LOTT Department: Room: Gender: F [employer]: PAT : 1950 Requested By: MATEO ALMAZAN Order Number: [id number] Reading MD: Nicolle Hudson Measurements Intervals [place] Rate: 65 P: 88 [place]: 164 QRS: 43 QRSD: 78 T: 47 QT: 381 QTc: 396 Interpretive Statements Sinus rhythm No previous ECG available for comparison Electronically Signed On 09-14-2021 18:54:22 EDT by Nicolle Hudson
== END 2021-09-14 00:06 | disposition home or self-care (01) ==
LOC: ED 15:52
DX: R07.9 Chest pain, unspecified (principal); I10 Essential (primary) hypertension; E11.9 Type 2 diabetes mellitus without complications; Z86.718 Personal history of other venous thrombosis and embolism; K21.9 Gastro-esophageal reflux disease without esophagitis; M19.90 Unspecified osteoarthritis, unspecified site; N28.9 Disorder of kidney and ureter, unspecified; J45.909 Unspecified asthma, uncomplicated; Z90.49 Acquired absence of other specified parts of digestive tract; Z88.1 Allergy status to other antibiotic agents; Z88.0 Allergy status to penicillin; Z79.899 Other long term (current) drug therapy
CPT/HCPCS: 36415; 71045; 80053; 84484; 85025; 93005; 99283; 99284

== ENCOUNTER 2021-11-15 11:00 | Outpatient (CLI) | payer MEDICARE | END 2021-11-15 11:01 | disposition home or self-care (01) | LOC: SLR 11:00 | PROVIDERS: ATTEND Internal Medicine | DX: G47.33 Obstructive sleep apnea (adult) (pediatric) (principal) | CPT/HCPCS: 95811 ==